=== PATIENT | female | born 1980 | race Caucasian/White ===

== ENCOUNTER 2018-11-13 11:28 | Inpatient (IN) | payer BC, OTHER, SELFPAY ==
[2018-11-13] MEDS ORDERED: ONDANSETRON 4 MG/2 ML VIAL ONE (12:17)
[2018-11-13] MEDS ORDERED: VANCOMYCIN 1 GM/250 ML BAG ONE (12:17)
[2018-11-13] MEDS ORDERED: Levofloxacin 750mg IV 750 MG/150 ML BAG IV ONE (12:17)
[2018-11-13] MEDS ORDERED: NA CHLORIDE 0.9% 2,000 ML ONE (12:17)
[2018-11-13] MEDS ORDERED: MEPERIDINE HCL 25 MG/0.5 ML ONE (12:17)
[2018-11-13 13:00] LABS: Absolute Lymphocytes (CBC) 1.3 K/uL (0.7-4.9); Absolute Monocytes 0.8 K/uL (0.1-1.3); Absolute Neutrophil 19.3 K/uL (1.8-8.0); Basophils % 0.2 % (0-1.3); Hematocrit 28.1 % (36.0-45.0); Lymphocytes % 5.9 % (15.3-44.8); MPV 8.7 fL (7.6-11.3); Monocytes % 3.9 % (3.3-12.3); RBC Red Blood Cell Count 4.65 M/uL (3.86-4.86)
[2018-11-13 13:19] LABS: Albumin 2.9 g/dL (3.4-5.0); Bilirubin Direct 0.4 mg/dL (0-0.2); Bilirubin Total 1.7 mg/dL (0.2-1.0); Potassium 3.2 mmol/L (3.5-5.1); Protein, Total 7.4 g/dL (6.4-8.2)
[2018-11-13] MEDS ORDERED: ACETAMINOPHEN 500 MG TAB ONE (13:28)
--- NOTE | 2018-11-13 13:39 | ER ---
Nurse's Notes [facility] Name: Blossom Diamond Age: 38 yrs Sex: Female : 1980 Arrival Date: 11/13/2018 Time: 11:31 Bed 20 Private MD: Luther Borges Diagnosis: Cellulitis and acute lymphangitis;Sepsis Presentation: 11/13 11:44 Presenting complaint: Patient states: 2 days of redness, swelling to left leg, from iw tapia down, hx of cellulitis 6 months ago in same leg. Transition of care: patient was not received from another setting of care. Onset of symptoms was November 11, 2018. Risk Assessment: Do you want to hurt yourself or someone else? Patient reports no desire to harm self or others. Initial Sepsis Screen: Does the patient meet any 2 criteria? No. Patient's initial sepsis screen is negative. Does the patient have a suspected source of infection? No. Patient's initial sepsis screen is negative. Care prior to arrival: None. 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 - Social history:: Smoking status: Patient/guardian denies using tobacco. - Ebola Screening: : Patient negative for fever greater than or equal to 101.5 degrees Fahrenheit, and additional compatible Ebola Virus Disease symptoms Patient denies exposure to infectious person Patient denies travel to an Ebola-affected area in the 21 days before illness onset No symptoms or risks identified at this time. Screenin:45 Abuse screen: Denies threats or abuse. Nutritional screening: No deficits noted. em Tuberculosis screening: No symptoms or risk factors identified. Fall Risk None identified. Assessment: 12:45 General: Appears in no apparent distress. uncomfortable, Behavior is calm, cooperative. em Pain: Complains of pain in left leg Pain currently is 9 out of 10 on a pain scale. Pain began 2-3 days ago. Neuro: Level of Consciousness is awake, alert, obeys commands, Oriented to person, place, time, situation. Cardiovascular: Rhythm is sinus tachycardia. Respiratory: Reports shortness of breath Airway is patent Respiratory effort is even, Respiratory pattern is regular, symmetrical, Breath sounds are clear bilaterally. GI: Abdomen is obese, Reports nausea. : No signs and/or symptoms were reported regarding the genitourinary system. EENT: No signs and/or symptoms were reported regarding the EENT system. Derm: Skin is intact, Skin is pale, Skin temperature is hot. Musculoskeletal: Range of motion: intact in all extremities. 13:10 Reassessment: Patient appears in no apparent distress at this time. I agree with above iw assessment by Guilherme Iraheta LVN. 13:45 Reassessment: Patient appears in no apparent distress at this time. Patient and/or em family updated on plan of care and expected duration. Pain level reassessed. Patient is alert, oriented x 3, equal unlabored respirations, skin warm/dry/pink. reports nausea after meds, provider notified, new medication orders received. 14:45 Reassessment: Patient appears in no apparent distress at this time. Patient and/or em family updated on plan of care and expected duration. Pain level reassessed. Patient is alert, oriented x 3, equal unlabored respirations, skin warm/dry/pink. pending room assignment Patient states feeling better. Patient states symptoms have improved. 15:15 Reassessment: Patient appears in no apparent distress at this time. Patient and/or em family updated on plan of care and expected duration. Pain level reassessed. Patient is alert, oriented x 3, equal unlabored respirations, skin warm/dry/pink. placed on 2 L via NC, SPO2 96 % RA, reports feeling tired and not well. 15:30 Reassessment: Patient appears in no apparent distress at this time. reports O2 has em helped. 16:31 Reassessment: Patient appears in no apparent distress at this time. Patient and/or em family updated on plan of care and expected duration. Pain level reassessed. Patient is alert, oriented x 3, equal unlabored respirations, skin warm/dry/pink. pt ambulated to restroom with assistance from daughter. Vital Signs: 11:46 BP 108 / 79; Pulse 134; Resp 18 S; Temp 99.7(O); Pulse Ox 96% on R/A; Weight 101.6 kg; iw Height 5 ft. 2 in. (157.48 cm); Pain 9/10; 12:45 BP 125 / 72; Pulse 125; Resp 20; Pulse Ox 97% on R/A; Pain 8/10; em 13:15 BP 135 / 55; Pulse 120; Resp 18; Temp 102.7(O); Pulse Ox 96% on R/A; em 14:00 BP 116 / 64; Pulse 116; Resp 26; Pulse Ox 98% on R/A; em 15:17 BP 118 / 64; Pulse 108; Resp 24; Temp 100.7(O); Pulse Ox 100% on 2 lpm NC; Pain 6/10; em 16:04 BP 107 / 60; Pulse 105; Resp 24; Temp 99.1(O); Pulse Ox 100% on 2 lpm NC; Pain 7/10; em 11:46 Body Mass Index 40.97 (101.60 kg, 157.48 cm) iw ED Course: 11:31 Patient arrived in ED. sb2 11:32 Luther Borges MD is Private Physician. sb2 11:45 Triage completed. iw 11:47 Arm band placed on. iw 11:49 Nico Tolbert PA is PHCP. jr8 11:49 Reji Ballard MD is Attending Physician. jr8 11:59 Guilherme Iraheta LVN is Primary Nurse. em 12:45 Patient has correct armband on for positive identification. Allergy band placed. Placed em in gown. Bed in low position. Call light in reach. Side rails up X2. Adult w/ patient. compliance monitor on. Pulse ox on. NIBP on. 12:45 Inserted saline lock: 22 gauge in right hand, using aseptic technique. Blood collected. em 12:45 Initial lab(s) drawn, by me, sent to lab. First set of blood cultures drawn by me, T\T\S em collected, blood band applied to patient. 13:10 Second set of blood cultures drawn by me. em 13:38 Rebel Smiley MD is Hospitalizing Provider. jr8 17:11 No provider procedures requiring assistance completed. Patient admitted, IV remains in em place. Administered Medications: 12:43 Drug: NS 0.9% (30 ml/kg) 30 ml/kg Route: IV; Rate: bolus; Site: right hand; em 15:38 Follow up: IV Status: Completed infusion; IV Intake: 3000ml tl3 12:45 Drug: Demerol 25 mg Route: IVP; Site: right hand; iw 13:49 Follow up: Response: No adverse reaction; Pain is decreased em 12:45 Drug: Zofran 4 mg Route: IVP; Site: right hand; iw 13:49 Follow up: Response: No adverse reaction; Nausea unchanged em 12:51 Drug: LevaQUIN 750 mg Volume: 150 ml; Route: IVPB; Infused Over: 90 mins; Site: right em hand; 14:21 Follow up: Response: No adverse reaction; IV Status: Completed infusion; IV Intake: em 150ml 13:21 Drug: Tylenol 1000 mg Route: PO; em 15:20 Follow up: Response: No adverse reaction; Temperature is decreased em 13:40 Drug: Potassium Chloride 40 mEq Route: PO; em 14:21 Follow up: Response: No adverse reaction em 14:10 Drug: Phenergan 12.5 mg Route: IVP; Site: right hand; hj 15:21 Follow up: Response: No adverse reaction; Nausea is decreased em 14:19 Drug: vancoMYCIN 1 grams Route: IVPB; Infused Over: 2 hrs; Site: right hand; em 16:31 Drug: NS 0.9% 1000 ml Route: IV; Rate: 100 ml/hr; Site: right hand; em 17:06 Follow up: IV Status: Infusion continued upon admission; IV Intake: 50ml em Intake: 14:21 IV: 150ml; Total: 150ml. em 15:38 IV: 3000ml; Total: 3150ml. tl3 17:06 IV: 50ml; Total: 3200ml. em Outcome: 13:39 Decision to Hospitalize by Provider. jrFarhad 17:11 Admitted to Tele accompanied by tech, family with patient, via stretcher, room 426, em with chart, Report called to LAST Breen 17:11 Condition: good 17:11 Instructed on the need for admit, Demonstrated understanding of instructions. 17:12 Patient left the ED. em Signatures: Guilherme Iraheta, DISTRIBUTION SYSTEMS SERVICEPERSON DISTRIBUTION SYSTEMS SERVICEPERSON em Mai Tracy RN RN Nico Tolbert PA PA jr8 Jamshid Demarco RN RN Angi Bacon [facility] Ronny, Lilibeth, RN RN tl3
--- NOTE | 2018-11-13 13:39 | EDPHYS ---
Physician Documentation [facility] Name: Blossom Diamond Age: 38 yrs Sex: Female : 1980 Arrival Date: 11/13/2018 Time: 11:31 Bed 20 Private MD: Luther Borges ED Physician Reji Ballard HPI: 11/13 12:48 This 38 yrs old Female presents to ER via Wheelchair with complaints of jr8 Cellulitis. 12:48 The patient presents with cellulitis of the left leg. Description: The affected area is jr8 moderate sized, erythematous, warm. Onset: The symptoms/episode began/occurred gradually, 2 day(s) ago. Possible cause(s): unknown. Associated signs and symptoms: Pertinent positives: fever. Modifying factors: the symptoms are alleviated by nothing, the symptoms are aggravated by movement, walking, pressure, touching. Severity of symptoms: At their worst the symptoms were moderate, in the emergency department the symptoms are unchanged. The patient has experienced a previous episode. The patient has not recently seen a physician. 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 - Social history:: Smoking status: Patient/guardian denies using tobacco. - Ebola Screening: : Patient negative for fever greater than or equal to 101.5 degrees Fahrenheit, and additional compatible Ebola Virus Disease symptoms Patient denies exposure to infectious person Patient denies travel to an Ebola-affected area in the 21 days before illness onset No symptoms or risks identified at this time. ROS: 12:48 Eyes: Negative for injury, pain, redness, and discharge, ENT: Negative for injury, jr8 pain, and discharge, Neck: Negative for injury, pain, and swelling, Cardiovascular: Negative for chest pain, palpitations, and edema, Respiratory: Negative for shortness of breath, cough, wheezing, and pleuritic chest pain, Abdomen/GI: Negative for abdominal pain, nausea, vomiting, diarrhea, and constipation, Back: Negative for injury and pain, MS/Extremity: Negative for injury and deformity, Neuro: Negative for headache, weakness, numbness, tingling, and seizure. 12:48 Constitutional: Positive for fever. 12:48 Skin: Positive for cellulitis. Exam: 12:48 Eyes: Pupils equal round and reactive to light, extra-ocular motions intact. Lids and jr8 lashes normal. Conjunctiva and sclera are non-icteric and not injected. Cornea within normal limits. Periorbital areas with no swelling, redness, or edema. ENT: Nares patent. No nasal discharge, no septal abnormalities noted. Tympanic membranes are normal and external auditory canals are clear. Oropharynx with no redness, swelling, or masses, exudates, or evidence of obstruction, uvula midline. Mucous membranes moist. Neck: Trachea midline, no thyromegaly or masses palpated, and no cervical lymphadenopathy. Supple, full range of motion without nuchal rigidity, or vertebral point tenderness. No Meningismus. Respiratory: Lungs have equal breath sounds bilaterally, clear to auscultation and percussion. No rales, rhonchi or wheezes noted. No increased work of breathing, no retractions or nasal flaring. Abdomen/GI: Soft, non-tender, with normal bowel sounds. No distension or tympany. No guarding or rebound. No evidence of tenderness throughout. Back: No spinal tenderness. No costovertebral tenderness. Full range of motion. Neuro: Awake and alert, GCS 15, oriented to person, place, time, and situation. Cranial nerves II-XII grossly intact. Motor strength 5/5 in all extremities. Sensory grossly intact. Cerebellar exam normal. Normal gait. 12:48 MS/ Extremity: Pulses equal, no cyanosis. Neurovascular intact. Full, normal range of motion. 12:48 Cardiovascular: Rate: tachycardic, Rhythm: regular, Pulses: Pulses are 2+ in right radial artery and left radial artery. Heart sounds: normal, normal S1and S2, no S3 or S4, no murmur, no rub, no gallop, Edema: is not appreciated. 12:48 Skin: cellulitis, that is moderate, well demarcated, Patient has moderate circumferential cellulitis to dorsum of left foot extending to left knee. Swelling/edema noted to leg. Painful to touch. Reactive lymphadenopathy to left groin present and tender . Vital Signs: 11:46 BP 108 / 79; Pulse 134; Resp 18 S; Temp 99.7(O); Pulse Ox 96% on R/A; Weight 101.6 kg; iw Height 5 ft. 2 in. (157.48 cm); Pain 9/10; 12:45 BP 125 / 72; Pulse 125; Resp 20; Pulse Ox 97% on R/A; Pain 8/10; em 13:15 BP 135 / 55; Pulse 120; Resp 18; Temp 102.7(O); Pulse Ox 96% on R/A; em 14:00 BP 116 / 64; Pulse 116; Resp 26; Pulse Ox 98% on R/A; em 15:17 BP 118 / 64; Pulse 108; Resp 24; Temp 100.7(O); Pulse Ox 100% on 2 lpm NC; Pain 6/10; em 16:04 BP 107 / 60; Pulse 105; Resp 24; Temp 99.1(O); Pulse Ox 100% on 2 lpm NC; Pain 7/10; em 11:46 Body Mass Index 40.97 (101.60 kg, 157.48 cm) iw MDM: 11:49 Patient medically screened. jr8 13:37 Data reviewed: vital signs, nurses notes, lab test result(s), EKG, radiologic studies, jr8 ultrasound, and as a result, I will admit patient. Data interpreted: Pulse oximetry: on room air is 96 %. Interpretation: normal. Counseling: I had a detailed discussion with the patient and/or guardian regarding: the historical points, exam findings, and any diagnostic results supporting the discharge/admit diagnosis, lab results, radiology results, the need for further work-up and treatment in the hospital. Physician consultation: Rebel Smiley MD was called at 13:38, was contacted at 13:38, regarding admission, to the telemetry unit. consult, patient's condition, and will see patient in ED. 11/13 12:01 Order name: Sed Rate; Complete Time: 17: jr8 11/13 12:01 Order name: Basic Metabolic Panel; Complete Time: 13:21 jr8 11/13 12:01 Order name: Blood Culture Adult (2) jr8 11/13 12:01 Order name: CBC with Diff; Complete Time: 17:01 jr8 11/13 12:01 Order name: CPK; Complete Time: 13:21 jr8 11/13 12:01 Order name: Lactate; Complete Time: 13:22 jr8 11/13 12:01 Order name: LFT's; Complete Time: 13:21 jr8 11/13 12:01 Order name: Procalcitonin; Complete Time: 13:33 jr8 11/13 12:01 Order name: Protime (+inr); Complete Time: 14:34 jr8 11/13 12:05 Order name: TS; Complete Time: 13:50 jr8 11/13 13:05 Order name: Manual Differential; Complete Time: 17:01 EDMS 11/13 13:28 Order name: ABO/RH no charge; Complete Time: 13:33 EDMS 11/13 15:49 Order name: Urine Dipstick--Ancillary (enter results) ag 11/13 12:01 Order name: Accucheck; Complete Time: 12:51 jr8 11/13 12:01 Order name: Cardiac monitoring; Complete Time: 12:51 8 11/13 12:01 Order name: EKG - Nurse/Tech; Complete Time: 15:55 8 11/13 15:15 Order name: Extremity Venous Uni Ltd EDMS 11/13 15:49 Order name: Urine --Ancillary (enter results) ag 11/13 15:56 Order name: Urine --Ancillary; Complete Time: 15:58 EDMS 11/13 15:56 Order name: Urine Dipstick-Ancillary; Complete Time: 15:58 EDMS 11/13 12:01 Order name: IV Saline Lock - Large Bore; Complete Time: 12:51 8 11/13 12:01 Order name: Labs collected and sent; Complete Time: 12:52 8 11/13 12:01 Order name: O2 Per Protocol; Complete Time: 12:52 8 11/13 12:01 Order name: O2 Sat Monitoring; Complete Time: 12:52 8 11/13 12:01 Order name: Urine Dipstick-Ancillary (obtain specimen); Complete Time: 15:38 8 11/13 13:09 Order name: Labs - recollect needed; Complete Time: 13:49 ag Administered Medications: 12:43 Drug: NS 0.9% (30 ml/kg) 30 ml/kg Route: IV; Rate: bolus; Site: right hand; em 15:38 Follow up: IV Status: Completed infusion; IV Intake: 3000ml tl3 12:45 Drug: Demerol 25 mg Route: IVP; Site: right hand; iw 13:49 Follow up: Response: No adverse reaction; Pain is decreased em 12:45 Drug: Zofran 4 mg Route: IVP; Site: right hand; iw 13:49 Follow up: Response: No adverse reaction; Nausea unchanged em 12:51 Drug: LevaQUIN 750 mg Volume: 150 ml; Route: IVPB; Infused Over: 90 mins; Site: right em hand; 14:21 Follow up: Response: No adverse reaction; IV Status: Completed infusion; IV Intake: em 150ml 13:21 Drug: Tylenol 1000 mg Route: PO; em 15:20 Follow up: Response: No adverse reaction; Temperature is decreased em 13:40 Drug: Potassium Chloride 40 mEq Route: PO; em 14:21 Follow up: Response: No adverse reaction em 14:10 Drug: Phenergan 12.5 mg Route: IVP; Site: right hand; hj 15:21 Follow up: Response: No adverse reaction; Nausea is decreased em 14:19 Drug: vancoMYCIN 1 grams Route: IVPB; Infused Over: 2 hrs; Site: right hand; em 16:31 Drug: NS 0.9% 1000 ml Route: IV; Rate: 100 ml/hr; Site: right hand; em 17:06 Follow up: IV Status: Infusion continued upon admission; IV Intake: 50ml em Disposition: 11/14 07:16 Co-signature as Attending Physician, Reji Ballard MD I agree with the assessment and mervin plan of care. Disposition: 11/13/18 13:39 Hospitalization ordered by Rebel Smiley for Inpatient Admission. Preliminary diagnosis are Cellulitis and acute lymphangitis, Sepsis. - Bed requested for Telemetry/MedSurg (Inpatient). - Status is Inpatient Admission. em - Condition is Fair. - Problem is new. - Symptoms have improved. UTI on Admission? No Signatures: Dispatcher [employer] Ivett Vogel RN RN dw Anderson, Corey, MD MD cha Munoz, Edgar, GLUE PLANT OPERATOR GLUE PLANT OPERATOR em Mai Tracy RN RN iw Roszak, Josh, PA PA jr8 Tara Cuellar Henry, RN RN hj Lowrey, Tammy RN tl3 Corrections: (The following items were deleted from the chart) 11/13 12:08 12:04 Blood Culture ordered. [facility] 12:09 12:02 BLOOD CULTURE*+[id number].LAB.BRZ ordered. [facility] 16:03 13:39 Hospitalization Ordered by Rebel Smiley MD for Inpatient Admission. Preliminary dw diagnosis is Cellulitis and acute lymphangitis; Sepsis. Bed requested for Telemetry/MedSurg (Inpatient). Status is Inpatient Admission. Condition is Fair. Problem is new. Symptoms have improved. UTI on Admission? No. jr8 17:12 16:03 11/13/2018 13:39 Hospitalization Ordered by Rebel Smiley MD for Inpatient em Admission. Preliminary diagnosis is Cellulitis and acute lymphangitis; Sepsis. Bed requested for Telemetry/MedSurg (Inpatient). Status is Inpatient Admission. Condition is Fair. Problem is new. Symptoms have improved. UTI on Admission? No. dw
[2018-11-13] MEDS ORDERED: POTASSIUM CL SA 10 MEQ TAB PO ONE (13:47)
[2018-11-13] MEDS ORDERED: NA CHLORIDE 0.9% 1,000 ML ONE ×2 (13:47→16:26)
[2018-11-13 14:12] LABS: Protime INR 2.1
[2018-11-13] MEDS ORDERED: PROMETHAZINE 25 MG/ML VIAL ONE (14:14)
[2018-11-13 15:56] LABS: Urine Blood 2+ (NEG); Urine Glucose NEGATIVE (NEG); Urine Protein 2+ (NEG); Urine pH 5.5 (5.0-7.0)
[2018-11-13 16:57] LABS: Platelet Estimate ADEQ
[2018-11-13 16:58] LABS: Anisocytosis 1+; Blood Morphology Comment NOTED (NOT SEEN); Hypochromasia 2+; Ovalocytes 1+; Polychromasia 1+
[2018-11-13 18:02] LABS: Absolute Lymphocytes (CBC) 1.1 K/uL (0.7-4.9); Absolute Monocytes 0.7 K/uL (0.1-1.3); Absolute Neutrophil 13.6 K/uL (1.8-8.0); Basophils % 0.2 % (0-1.3); Eosinophils % 0.3 % (0-4.4); Hematocrit 25.6 % (36.0-45.0); Monocytes % 4.6 % (3.3-12.3); RBC Red Blood Cell Count 4.24 M/uL (3.86-4.86)
[2018-11-13] MEDS: ENOXAPARIN 40 MG/0.4 ML SQ SCH (18:20)
[2018-11-13] MEDS: NA CHLORIDE 0.9% 1,000 ML IV SCH (18:20)
[2018-11-13 18:21] LABS: Albumin 2.5 g/dL (3.4-5.0); Bilirubin Total 1.4 mg/dL (0.2-1.0); Potassium 3.5 mmol/L (3.5-5.1); Protein, Total 6.4 g/dL (6.4-8.2)
--- NOTE | 2018-11-13 18:45 | P.HP ---
Certification for Inpatient Patient admitted to: Inpatient With expected LOS: >2 Midnights Practitioner: I am a practitioner with admitting privileges, knowledge of patient current condition, hospital course, and medical plan of care. Services: Services provided to patient in accordance with Admission requirements found in Title 42 Section 412.3 of the Code of Federal Regulations Patient History Date of Service: 11/13/18 Reason for admission: Left lower extremity swelling. History of Present Illness: This is a 38 yr old female with hx of anemia admitted for cellulitis of Left lower extremity. Left lower extremity swelling, erythema, pain, tenderness, fevers, chills, for the past 2-3 days, progressively worsening. In the ED, patient with elevated WBC count, fever, tachycardia, elevated procal with a normal lactic acid. She received IVF, IV levaquin and Vancomycin. At the time of my exam, pt AAOx3, moderate distress 2/2 pain. Allergies codeine Allergy (Verified 11/13/18 16:16) Hives/Rash Home Medications: NK [No Home Meds] 11/13/18 - Past Medical/Surgical History Diabetic: No -: Cellulitis - Social History Smoking Status: Never smoker Alcohol use: No CD- Drugs: No Caffeine use: Yes Place of Residence: Home Review of Systems 10-point ROS is otherwise unremarkable Physical Examination - Vital Signs Temperature: 99.1 F Blood Pressure: 107/60 Pulse: 105 Respirations: 24 Pulse Ox (%): 97 - Physical Exam General: Alert, In no apparent distress, Oriented x3 HEENT: Atraumatic, PERRLA, Mucous membr. moist/pink, EOMI, Sclerae nonicteric Neck: Supple, 2+ carotid pulse no bruit, No LAD, Without JVD or thyroid abnormality Respiratory: Clear to auscultation bilaterally, Normal air movement Cardiovascular: Normal S1 S2, Irregular heart rate/rhythm (Tachycardic, normal sinus rhythm) Gastrointestinal: Normal bowel sounds, No tenderness Musculoskeletal: No tenderness Integumentary: Tenderness/swelling, Erythema, Warmth (LLE) Neurological: Normal gait, Normal speech, Normal strength at 5/5 x4 extr, Normal tone, Normal affect Lymphatics: No axilla or inguinal lymphadenopathy - Studies Laboratory Data (last 24 hrs) 11/13/18 13:48: PT 25.0 H, INR 2.10 11/13/18 12:40: Sodium 132 L, Potassium 3.2 L, BUN 9, Creatinine 0.99, Glucose 120 H, Total Bilirubin 1.7 H, AST 22, ALT 25, Alkaline Phosphatase 63 11/13/18 12:40: WBC 21.4 H*, Hgb 8.7 L, Hct 28.1 L, Plt Count 366 Assessment and Plan - Problems (Diagnosis) (1) Left leg cellulitis Current Visit: Yes Status: Acute (2) Anemia Current Visit: Yes Status: Acute Qualifiers: Anemia type: iron deficiency Iron deficiency anemia type: unspecified iron deficiency Qualified Code(s): D50.9 - Iron deficiency anemia, unspecified (3) Sepsis Current Visit: Yes Status: Acute Qualifiers: Sepsis type: sepsis due to unspecified organism Qualified Code(s): A41.9 - Sepsis, unspecified organism (4) Family history of systemic lupus erythematosus Current Visit: Yes Status: Chronic (5) Morbid obesity with BMI of 40.0-44.9, adult Current Visit: Yes Status: Chronic (6) Tachycardia Current Visit: Yes Status: Acute - Plan This is a 38 yr old female with: Sepsis (Acute) A41.9 Sepsis with tachycardia, elevated WBC, fever. Source is likely the cellulitis. We will continue IVF, IV antibiotics. Continue to monitor Left leg cellulitis (Acute) L03.116 Continue IV antibiotics Continue to monitor demarcation of cellulitis. Seems that this is the second time patient has had cellulitis in same region. A1c pending Tachycardia, sinus rhythm Likely secondary to sepsis vs anemia? Continue IVF, will monitor. Tele monitoring Anemia (Acute) D64.9 Chronic. patient takes OTC iron pills during menstrual cycles. H&H stable, no evidence of bleeding. Will continue to monitor Family history of systemic lupus erythematosus (Acute) Z82.69 Morbid obesity, BMI 41.0 DVT prophylaxis: Lovenox GI prophylaxis: None Diet; heart healthy Dispo: Admit to floor with tele. Continue IVF, IV antibiotics. Pending symptomatic improvement. - Advance Directives Does patient have a Living Will: No Does patient have a Durable POA for Healthcare: No Time Spent Managing Pts Care (In Minutes): 55
[2018-11-13] MEDS ORDERED: TRAMADOL HCL 50 MG TAB PO PRN (18:58)
[2018-11-13] MEDS ORDERED: ONDANSETRON 4 MG/2 ML VIAL IV PRN (18:58)
[2018-11-13] MEDS: MEPERIDINE HCL 25 MG/0.5 ML IV PRN (19:51)
[2018-11-13] MEDS ORDERED: VANCOMYCIN/NS 1 gm 1 GM/250 ML BAG IVPB ONE (20:00)
[2018-11-13] MEDS ORDERED: POTASSIUM 25 MEQ EFFERV TAB PO ONE (21:00)
[2018-11-13] MEDS ORDERED: VANCOMYCIN 1 GM/VIAL ONE (21:27)
[2018-11-13] MEDS ORDERED: NA CHLORIDE 0.9% 250 ML ONE (21:28)
[2018-11-13] MEDS: ACETAMINOPHEN 500 MG TAB PO PRN (23:57)
[2018-11-14] MEDS: MEPERIDINE HCL 25 MG/0.5 ML IV PRN ×4 (00:11→16:13)
[2018-11-14] MEDS ORDERED: VANCOMYCIN 1.5 GM in NA CHLORIDE 0.9% 500 ML IVPB SCH (03:00)
[2018-11-14] MEDS ORDERED: VANCOMYCIN 2 GM in NA CHLORIDE 0.9% 500 ML IVPB SCH (03:00)
[2018-11-14 04:37] LABS: Magnesium 1.8 mg/dL (1.8-2.4); Potassium 3.4 mmol/L (3.5-5.1)
[2018-11-14] MEDS ORDERED: MAGNESIUM SULFATE 1 gm IVPB 1 GM/100 ML BAG IV ONE (04:45)
[2018-11-14] MEDS: NA CHLORIDE 0.9% 1,000 ML IV SCH ×2 (05:00→15:00)
[2018-11-14] MEDS ORDERED: POTASSIUM 25 MEQ EFFERV TAB PO ONE (07:30)
[2018-11-14] MEDS: CEFTRIAXONE/SWI 1gm 1 GM/10 ML SYR IV SCH (08:10)
--- NOTE | 2018-11-14 08:16 | RAD REPORT ---
EXAM DESCRIPTION: USExtremdominique Venous Uni Ltd11/13/2018 10:11 pm CLINICAL HISTORY: left leg pain and swelling. COMPARISON: None. FINDINGS: Left common femoral, superficial femoral, popliteal and posterior tibial veins are compre ssible and demonstrate augmentation. Doppler demonstrates good flow. 2 centimeter left inguinal lymph node IMPRESSION: No evidence of deep venous thrombosis involving the left lower extremity.
[2018-11-14] MEDS ORDERED: CEFTRIAXONE 1 GM/NS 50 ML 1 GM/50 ML BAG IV SCH (09:00)
[2018-11-14] MEDS: VANCOMYCIN 2 GM in NA CHLORIDE 0.9% 500 ML IVPB SCH ×2 (09:06→21:00)
--- NOTE | 2018-11-14 09:09 | EKG ---
Test Date: 2018-11-13 Test Time: 13:19:02 Disability Manager: [place] MEASUREMENT RESULTS: Intervals: Rate: 121 WV: 142 QRSD: 72 QT: 310 QTc: 440 [place]: P: 41 WV: 142 QRS: 47 T: 48 INTERPRETIVE STATEMENTS: Sinus tachycardia Cannot rule out Anterior infarct, age undetermined Abnormal ECG Compared to ECG 11/17/2013 09:21:01 Myocardial infarct finding now present Sinus rhythm no longer present Electronically Signed On 11-14-18 09:09:16 WELDING MACHINE OPERATOR THERMIT by Kaveh Garcia
[2018-11-14] MEDS: ENOXAPARIN 40 MG/0.4 ML SQ SCH (17:09)
[2018-11-14] MEDS: ACETAMINOPHEN 500 MG TAB PO PRN (17:09)
--- NOTE | 2018-11-14 18:45 | P.PN ---
Subjective Date of Service: 11/14/18 Chief Complaint: Left lower extremity swelling. Subjective: No C/O voiced, Improving Patient seen and examined at bedside. Mother at bedside. chart reviewed and case discussed with nursing staff. Review of Systems 10-point ROS is otherwise unremarkable Physical Examination - Vital Signs Temperature: 100.9 F Blood Pressure: 119/63 Pulse: 115 Respirations: 18 Pulse Ox (%): 96 - Physical Exam General: Alert, In no apparent distress, Oriented x3 HEENT: Atraumatic, PERRLA, EOMI Neck: Supple, JVD not distended Respiratory: Clear to auscultation bilaterally, Normal air movement Cardiovascular: Regular rate/rhythm, Normal S1 S2 Gastrointestinal: Normal bowel sounds, No tenderness Musculoskeletal: No tenderness Integumentary: No rashes Neurological: Normal speech, Normal tone, Normal affect Lymphatics: No axilla or inguinal lymphadenopathy - Studies Microbiology Data (last 24 hrs): 11/13/18 12:40 Blood - Blood Anaerobic Blood Culture - Final Assessment And Plan - Current Problems (Diagnosis) (1) Left leg cellulitis Onset Date: 11/14/18 Current Visit: Yes Status: Acute (2) Anemia Onset Date: 11/14/18 Current Visit: Yes Status: Acute Qualifiers: Anemia type: iron deficiency Iron deficiency anemia type: unspecified iron deficiency Qualified Code(s): D50.9 - Iron deficiency anemia, unspecified (3) Sepsis Onset Date: 11/14/18 Current Visit: Yes Status: Acute Qualifiers: Sepsis type: sepsis due to unspecified organism Qualified Code(s): A41.9 - Sepsis, unspecified organism (4) Family history of systemic lupus erythematosus Current Visit: Yes Status: Chronic (5) Morbid obesity with BMI of 40.0-44.9, adult Onset Date: 11/14/18 Current Visit: Yes Status: Chronic (6) Tachycardia Onset Date: 11/14/18 Current Visit: Yes Status: Acute - Plan This is a 38 yr old female with: Sepsis (Acute) A41.9 Improving Sepsis with tachycardia, elevated WBC, fever. Source is likely the cellulitis. We will continue IVF, IV antibiotics. Continue to monitor Left leg cellulitis (Acute) L03.116 Continue IV antibiotics Continue to monitor demarcation of cellulitis. Seems that this is the second time patient has had cellulitis in same region. A1c in normal range Tachycardia, sinus rhythm Likely secondary to sepsis vs anemia? Continue IVF, will monitor. Tele monitoring Anemia (Acute) D64.9 Chronic. patient takes OTC iron pills during menstrual cycles. H&H remains stable, no evidence of bleeding. Will continue to monitor Family history of systemic lupus erythematosus (Acute) Z82.69 Morbid obesity, BMI 41.0 DVT prophylaxis: Lovenox GI prophylaxis: None Diet; heart healthy Dispo: Admit to floor with tele. Continue IVF, IV antibiotics. Pending symptomatic improvement.
[2018-11-14] MEDS ORDERED: ZOLPIDEM TARTRATE 5 MG TABLET PO ONE (21:00)
[2018-11-15] MEDS: NA CHLORIDE 0.9% 1,000 ML IV SCH (01:00)
[2018-11-15] MEDS: ACETAMINOPHEN 500 MG TAB PO PRN ×2 (06:01→10:46)
[2018-11-15 07:50] LABS: BUN Blood Urea Nitrogen 5 mg/dL (7-18); Bicarbonate 21 mmol/L (21-32); Glucose Level 125 mg/dL (74-106); Magnesium 2.1 mg/dL (1.8-2.4); Phosphorus 1.4 mg/dL (2.5-4.9); Potassium 3.5 mmol/L (3.5-5.1); Sodium Level 141 mmol/L (136-145)
[2018-11-15] MEDS ORDERED: POTASSIUM CL SA 10 MEQ TAB PO ONE (08:08)
[2018-11-15] MEDS: VANCOMYCIN 2 GM in NA CHLORIDE 0.9% 500 ML IVPB SCH ×2 (08:39→20:00)
[2018-11-15] MEDS: CEFTRIAXONE/SWI 1gm 1 GM/10 ML SYR IV SCH (08:40)
[2018-11-15] MEDS: POTASS/SODIUM PHOSPHATE 1 PKT POWD.PACK PO SCH ×3 (08:41→10:48)
[2018-11-15 11:34] LABS: Absolute Lymphocytes (CBC) 1.4 K/uL (0.7-4.9); Absolute Monocytes 0.8 K/uL (0.1-1.3); Absolute Neutrophil 8.9 K/uL (1.8-8.0); Basophils % 0.3 % (0-1.3); Eosinophils % 0.4 % (0-4.4); Hematocrit 24.1 % (36.0-45.0); Lymphocytes % 12.8 % (15.3-44.8); MPV 8.7 fL (7.6-11.3); Monocytes % 7.1 % (3.3-12.3); RBC Red Blood Cell Count 3.93 M/uL (3.86-4.86)
[2018-11-15 12:56] LABS: Platelet Estimate ADEQ; Urine White Blood Cell Casts OK
[2018-11-15 12:57] LABS: Anisocytosis 1+; Blood Morphology Comment NOTED (NOT SEEN); Hypochromasia 2+; Ovalocytes 1+
[2018-11-15] MEDS ORDERED: FUROSEMIDE 40 MG/4 ML VIAL IV ONE (14:06)
[2018-11-15] MEDS ORDERED: ALPRAZOLAM 0.25 MG TABLET PO ONE (14:17)
--- NOTE | 2018-11-15 16:33 | RAD REPORT ---
EXAM DESCRIPTION: Eli Conklin And Lat (2 Views)11/15/2018 1:36 pm CLINICAL HISTORY: Shortness of breath COMPARISON: 2014 FINDINGS: Mild to moderate bilateral patchy lung opacities are present. Heart is mildly enlarged IMPRESSION: Small to moderate patchy bilateral lung opacities probably representing pneumonia.
--- NOTE | 2018-11-15 16:35 | RAD REPORT ---
EXAM DESCRIPTION: NM - Vent Perfusion VQ Scan - 11/15/2018 4:26 pm CLINICAL HISTORY: Shortness of breath COMPARISON: Chest x-ray November 15, 2018 TECHNIQUE: 11.1 Mci Xe133 was administered by inhalation. First breath, equilibrium, and washout images of the lungs obtained 7.7 millicuries Technetium-99 MAA was administered intravenously. Anterior, posterior, lateral and ob lique views of the lungs were taken. FINDINGS: Diminished radiotracer activity involves the left lung base on ventilation and perfusion i mages which is matched. The right lung demonstrates homogeneous radiotracer activity on ventilation and perfusion sequences. No mismatched segmental or lobar perfusion defects are seen. IMPRESSION: Low probability for a pulmonary embolus
[2018-11-15] MEDS: ENOXAPARIN 40 MG/0.4 ML SQ SCH (17:42)
--- NOTE | 2018-11-15 21:07 | PN ---
Date of Progress Note: 11/15/2018 Subjective: The patient is seen and examined. Chart reviewed and case discussed with RN. The patient is having significant difficulty with speaking in full sentences without getting short of breath. The patient is tachycardic, complaining of edema in her lower extremity and her upper extremity where the IV is. Medications: List reviewed. Physical Examination: Vital Signs: Temperature 100.7, heart rate 111, blood pressure 117/67, respirations 16, and O2 of 92% on 2 L via nasal cannula. General: Awake, alert, and oriented x3. Morbidly obese female, ill appearing. CV: S1 and S2. Sinus tachycardia. No murmurs. Respiratory: Diminished breath sounds. No wheezing or stridor. Gastrointestinal: Abdomen is nontender and nondistended. Positive bowel sounds. No guarding or rigidity. Extremities: No clubbing or cyanosis. The patient does have edema on the left lower extremity and right upper extremity. Neurologic: Nonfocal. Cranial nerves 2 through 12 intact grossly. No focal neurological deficit. Speech is normal. Laboratory Data: Sodium 141, potassium 3.5, chloride 111, CO2 of 21, BUN 5, creatinine 0.69, glucose 125, calcium 7.6, phosphorus 1.4 and magnesium 2.1. WBC 11.2, H and H of 7.2 and 24.1, neutrophils 79%. D-dimer is 1034. Blood cultures, no growth to date. Chest x-ray shows small to moderate patchy bilateral lung opacities, probably represent pneumonia. V/Q scan is pending. Assessment And Plan: A 38-year-old female with, 1. Sepsis secondary to left leg cellulitis. 2. Left leg cellulitis, improving. White count has improved. Redness has improved as well. We will continue IV antibiotics. Follow up on blood cultures , were negative to date. 3. Iron-deficiency anemia. This is chronic for the patient. The patient is refusing blood transfusion at this time. We will continue to monitor H and H. 4. Family history of systemic lupus erythematosus. 5. Morbid obesity, BMI 41. 6. Pneumonia. We will continue with IV antibiotics. 7. Edema. We will follow up with lung V/Q scan, obtain pulmonology consult. Discontinue IV fluids. SA/MODL Voice ID: [id number] Report ID: [id number] MTDD
[2018-11-15] MEDS: ALPRAZOLAM 0.25 MG TABLET PO PRN (21:49)
[2018-11-16 06:32] LABS: BUN Blood Urea Nitrogen 7 mg/dL (7-18); Bicarbonate 27 mmol/L (21-32); Glucose Level 94 mg/dL (74-106); Phosphorus 2.9 mg/dL (2.5-4.9); Potassium 3.3 mmol/L (3.5-5.1); Sodium Level 140 mmol/L (136-145)
[2018-11-16] MEDS ORDERED: POTASSIUM CL SA 10 MEQ TAB PO ONE ×2 (08:07→16:30)
--- NOTE | 2018-11-16 08:26 | RAD REPORT ---
EXAM DESCRIPTION: RAD - Chest Single View - 11/16/2018 1:36 am CLINICAL HISTORY: PICC line placement A preliminary report was provided at the time of the study and reviewed prior to final report. COMPARISON: November 15 FINDINGS: Portable chest was obtained following placement of a right upper extremity PICC line. The catheter tip is in the right atrium.
[2018-11-16] MEDS: CEFTRIAXONE/SWI 1gm 1 GM/10 ML SYR IV SCH (09:19)
[2018-11-16] MEDS: VANCOMYCIN 2 GM in NA CHLORIDE 0.9% 500 ML IVPB SCH ×2 (09:20→20:39)
[2018-11-16 09:28] LABS: Hematocrit 22.5 % (36.0-45.0)
[2018-11-16 10:41] LABS: Arterial Blood Carboxyhemoglob 2.1 % (0-1.5); Blood Gas Oxyhemoglobin 89.9 % (94-97)
[2018-11-16] MEDS: ALPRAZOLAM 0.25 MG TABLET PO PRN ×2 (11:25→20:41)
--- NOTE | 2018-11-16 12:07 | P.CNS ---
Date of Consult: 11/16/18 Reason for Consult: Shortness of breath Chief Complaint: Shortness of breath and lower extremity edema History of Present Illness: Patient is 38 years of age admitted with left lower leg cellulitis problems started over the weekend steroid related developing fever swelling of the legs became worse over the past 2 days and then developed more shortness of breath pressure in her chair she has presume severe iron-deficiency anemia secondary to to her menstrual periods. For prior history of cardiopulmonary problems patient had a bout of cellulitis in May and was treated with antibiotics Allergies codeine Allergy (Verified 11/13/18 16:16) Hives/Rash shrimp Allergy (Verified 11/15/18 13:47) Anaphylaxis Home Medications: NK [No Home Meds] 11/13/18 - Past Medical/Surgical History Diabetic: No -: Cellulitis - Social History Alcohol use: No CD- Drugs: No Caffeine use: Yes Place of Residence: Home Review of Systems Respiratory: Shortness of Breath Cardiovascular: Edema (And significant edema of the left leg) Physical Examination Temp Pulse Resp BP Pulse Ox 98.1 F 97 H 20 112/55 L 99 11/16/18 08:00 11/16/18 08:00 11/16/18 08:00 11/16/18 08:00 11/16/18 08:00 General: Alert, In no apparent distress, Oriented x3 HEENT: Atraumatic Neck: Supple Respiratory: Clear to auscultation bilaterally Cardiovascular: Regular rate/rhythm, Edema (Left leg is red and swollen) - Problems (1) Left leg cellulitis Onset Date: 11/14/18 Current Visit: Yes Status: Acute Plan: Patient is 38 years of age admitted with left leg cellulitis currently on vancomycin and Rocephin cultures are all negative (2) Shortness of breath Current Visit: Yes Status: Acute Plan: Patient has developed dyspnea since hospitalization she is a severe microcytic anemia of order serum ferritin she will need iron infusions patient is mildly hypoxic V/Q scan low probability no evidence of DVT patient's white count is declining as patient is up ox sick I recommended trial of CPAP probably underlying atelectasis trial of bronchodilator, poss underlying YONAS.
[2018-11-16] MEDS: ALBUTEROL 2.5 MG/3 ML NEB SOL NEB SCH ×2 (14:07→19:59)
[2018-11-16] MEDS: ENOXAPARIN 40 MG/0.4 ML SQ SCH (17:12)
[2018-11-16] MEDS: SOD FERRIC GLUC COMPLX/SUCROSE 125 MG in NA CHLORIDE 0.9% 100 ML IV SCH (17:12)
--- NOTE | 2018-11-16 20:31 | PN ---
Date of Progress Note: 11/16/2018 Subjective: The patient is seen and examined. Chart reviewed and case discussed with RN and Dr. Donal carter as well as her primary care physician, Dr. Borges. The patient states she is doing significant ly better. Her shortness of breath has improved. She still has some hypoxic episodes with tachycard ia but overall is able to speak without getting short of breath. Swelling has improved as well. No further erythema of the lower extremity. Medications: List reviewed. Objective: Vital Signs: Temperature 98.1, heart rate 97, blood pressure 112/55, respirations 20, O2 of 99% on 3 L via nasal cannula. General: Awake, alert, oriented x3. Morbidly obese female, ill-appearing. CV: S1, S2. Sinus tachycardia. No murmurs. Peripheral pulses present. Respiratory: Diminished breath sounds. No wheezing or crackles. Gastrointestinal: Abdomen is soft, nontender, nondistended. Positive bowel sounds. Extremities: No clubbing, cyanosis. The patient has lower extremity edema, 3+ of the left lower ext remity greater than the right. Neurologic: Nonfocal. Skin: Left lower extremity erythema improving. Laboratory Data: Sodium 140, potassium 3.3, chloride 106, CO2 of 27, BUN 7, creatinine of 0.62, gluc ose 94, calcium 7.9, phosphorus 2.9, ferritin 35. ABG; pH 7.46, pCO2 of 34.3, PO2 of 64, bicarb 24. D-dimer from 11/15/2018 was 1034. H and H 7 and 22.5. Blood cultures no growth to date. Assessment: A 38-year-old female with: 1.Acute respiratory distress with hypoxemia, may be secondary to severe anemia versus atelectasis, d oubt pneumonia. Appreciate Dr. Pappas's input. We will place patient on CPAP and look for signs o f improvement. Wean off oxygen as tolerated. The patient is still very tachypneic and tachycardic. 2.Sepsis secondary to left leg cellulitis, improving. White count trending down. However, the daniel ent is still tachycardic, has remained afebrile for greater than 24 hours. Cultures are negative to date. Continue antibiotics. 3.Left leg cellulitis, improved. Erythema is resolving. We will continue IV antibiotics for now. 4.Iron deficiency anemia. H and H has dropped to 7 this morning. The patient not interested in blo od from the blood bank, wants to donate blood. However, unable to be done at this time. Alt ernative is iron infusions. I spoke with Dr. Borges, who is her primary care physician. The patient remains on the anemic side with a baseline hemoglobin of 8 and trends downward during her menstrual cycle, which she is currently on at this time. 5.Morbid obesity, BMI of 41. 6.Lower extremity edema. The patient does have chronic edema. 7.Eczema. 8.Gastrointestinal and deep venous thrombosis prophylaxis addressed. Plan: Likely discharge the patient in the next 24 to 48 hours depending on clinical improvement with her respiratory status. We will continue broad-spectrum IV antibiotics for now, a trial of nebulize r treatments. We will discontinue IV fluids, follow up on cultures. /HARLEY Voice ID: [id number] Report ID: [id number]
[2018-11-16] MEDS: LACTOBACILLUS/ACIDOPHILUS TAB PO SCH (20:41)
[2018-11-17] MEDS: ALBUTEROL 2.5 MG/3 ML NEB SOL NEB SCH ×4 (02:00→21:20)
[2018-11-17 05:03] LABS: Absolute Lymphocytes (CBC) 1.6 K/uL (0.7-4.9); Absolute Monocytes 0.8 K/uL (0.1-1.3); Absolute Neutrophil 6.2 K/uL (1.8-8.0); Basophils % 0.8 % (0-1.3); Eosinophils % 2.9 % (0-4.4); Hematocrit 21.7 % (36.0-45.0); Lymphocytes % 18.1 % (15.3-44.8); MPV 7.7 fL (7.6-11.3); Monocytes % 9.3 % (3.3-12.3); RBC Red Blood Cell Count 3.58 M/uL (3.86-4.86)
[2018-11-17 05:21] LABS: BUN Blood Urea Nitrogen 6 mg/dL (7-18); Bicarbonate 26 mmol/L (21-32); Glucose Level 98 mg/dL (74-106); Sodium Level 144 mmol/L (136-145)
[2018-11-17] MEDS ORDERED: SOD FERRIC GLUC COMPLX/SUCROSE 125 MG in NA CHLORIDE 0.9% 100 ML IV SCH (09:00)
[2018-11-17] MEDS: VANCOMYCIN 2 GM in NA CHLORIDE 0.9% 500 ML IVPB SCH ×2 (09:57→20:00)
[2018-11-17] MEDS: SOD FERRIC GLUC COMPLX/SUCROSE 125 MG in NA CHLORIDE 0.9% 100 ML IV SCH (09:57)
[2018-11-17] MEDS: CEFTRIAXONE/SWI 1gm 1 GM/10 ML SYR IV SCH (09:58)
[2018-11-17] MEDS: LACTOBACILLUS/ACIDOPHILUS TAB PO SCH ×2 (09:58→21:00)
[2018-11-17] MEDS ORDERED: FUROSEMIDE 20 MG/ 2ML VIAL IV SCH ×2 (10:12→10:13)
[2018-11-17] MEDS ORDERED: NA CHLORIDE 0.9% 500 ML ONE (13:40)
--- NOTE | 2018-11-17 20:18 | PN ---
Date of Progress Note: 11/17/2018 Subjective: The patient is seen and examined. Chart reviewed and case discussed with RN, Dr. Marcie arevalo, and Dr. Borges. The patient continues to be very short of breath. Hemoglobin dropped today. Medications: List reviewed. Physical Examination: Vital Signs: Temperature 97.1, heart rate 105, respirations 32, blood pressure 119/74, O2 93% on patricia m air. General: Awake, alert, oriented x3. Morbidly obese female, ill-appearing, in moderate respiratory d istress. CV: S1, S2. Sinus tachycardia. No murmurs. Peripheral pulses present bilaterally. Respiratory: The patient not taking deep breaths. Diminished breath sounds. No wheezing or crackle s. The patient is tachypneic with use of accessory muscles. Gastrointestinal: Abdomen is soft, nontender, nondistended. Positive bowel sounds. Extremities: No clubbing, cyanosis. The patient does have lower extremity edema, left worse than ri ght. Skin: Erythema has resolved on the left lower extremity. No rashes. Neuro: Nonfocal. Laboratory Data: Sodium 144, potassium 4, chloride 111, CO2 26, BUN 6, creatinine 0.61, glucose 98, calcium 8.2. WBC 9, H and H 6.6 and 21.7, platelets 375, neutrophils 68%. ABIMBOLA and double-stranded D NA antibodies pending. Blood cultures, no growth to date. Assessment And Plan: A 38-year-old female with: 1.Acute respiratory distress with hypoxemia, likely secondary to anemia versus atelectasis, PE has b een ruled out. Low probability on V/Q scan. We will continue on supplemental oxygen. 2.Sepsis secondary to left leg cellulitis, improving. White count is normalized. The patient, edel lubin, still tachycardic and tachypneic. We will continue antibiotics. 3.Left leg cellulitis, improving. Erythema resolved. Cultures are negative. 4.Iron deficiency anemia. Hemoglobin dropped at 6.6. The patient initially not interested in blood transfusion, however, now is agreeable. We will transfuse 2 units PRBCs. Extensively explained pos sible reactions including but not limited to fever, shakes, shortness of breath, transfusion related lung injury, and possibly even . She understands risks versus benefits and agrees for transfusi on. The patient did receive 2 iron transfusions; however, her main issue is lack of circulating. Sh e needs help with circulating oxygen, which can be improved with packed red blood cells. 5.Morbid obesity, BMI 41. 6.Lower extremity edema. 7.History of eczema. 8.Gastrointestinal and deep venous thrombosis prophylaxis, PPI and SCDs. No chemical anticoagulatio n due to anemia. /HARLEY Voice ID: [id number] Report ID: [id number]
[2018-11-17] MEDS ORDERED: NA CHLORIDE 0.9% 250 ML ONE (22:59)
[2018-11-18] MEDS: ALBUTEROL 2.5 MG/3 ML NEB SOL NEB SCH ×3 (02:25→13:24)
[2018-11-18 05:45] LABS: Absolute Lymphocytes (CBC) 1.9 K/uL (0.7-4.9); Absolute Neutrophil 8.6 K/uL (1.8-8.0); Basophils % 0.5 % (0-1.3); Eosinophils % 3.1 % (0-4.4); Hematocrit 27.3 % (36.0-45.0); Lymphocytes % 15.6 % (15.3-44.8); MPV 7.4 fL (7.6-11.3); Monocytes % 8.4 % (3.3-12.3); RBC Red Blood Cell Count 4.14 M/uL (3.86-4.86)
[2018-11-18 05:59] LABS: BUN Blood Urea Nitrogen 5 mg/dL (7-18); Bicarbonate 27 mmol/L (21-32); Glucose Level 101 mg/dL (74-106); Potassium 3.6 mmol/L (3.5-5.1); Sodium Level 145 mmol/L (136-145)
--- NOTE | 2018-11-18 07:37 | ECHO ---
HEIGHT: 5 ft 2 in WEIGHT: 224 lb 0 oz DATE OF STUDY: 11/17/[address]: Toribio Carrillo MD 2-DIMENSIONAL: YES M.MODE: YES DOPPLER: YES COLOR FLOW: YES TDS: YES PORTABLE: DEFINITY: BUBBLE STUDY: DIAGNOSIS: SHORTNESS OF BREATH, ARRHYTHMIA CARDIAC HISTORY: CATHERIZATION: NO SURGERY: NO PROSTHETIC VALVE: NO PACEMAKER: NO MEASUREMENTS (cm) DIASTOLIC (NORMALS) SYSTOLIC (NORMALS) IVSd 1.0 (0.6-1.2) LA Diam 2.9 (1.9-4.0) LVEF 65% LVIDd 4.0 (3.5-5.7) LVIDs 2.6 (2.0-3.5) %FS 35% LVPWd 1.1 (0.6-1.2) Ao Diam 2.6 (2.0-3.7) 2 DIMENSIONAL ASSESSMENT: RIGHT ATRIUM: NORMAL LEFT ATRIUM: NORMAL RIGHT VENTRICLE: NORMAL LEFT VENTRICLE: NORMAL TRICUSPID VALVE: NORMAL MITRAL VALVE: NORMAL PULMONIC VALVE: NORMAL AORTIC VALVE: NORMAL PERICARDIAL EFFUSION: NONE AORTIC ROOT: NORMAL LEFT VENTRICULAR WALL MOTION: NORMAL DOPPLER/COLOR FLOW: NORMAL COMMENTS: NORMAL 2-DIMENSIONAL ECHOCARDIOGRAM WITH DOPPLER. NO WALL MOTION ABNORMALITY. NO EFFUSION. TECHNICALLY DIFFICULT STUDY. TECHNOLOGIST: ARMANDO KING
[2018-11-18] MEDS ORDERED: POTASSIUM 25 MEQ EFFERV TAB PO ONE (07:41)
[2018-11-18] MEDS: VANCOMYCIN 2 GM in NA CHLORIDE 0.9% 500 ML IVPB SCH (08:00)
[2018-11-18] MEDS ORDERED: POTASSIUM CL SA 10 MEQ TAB PO ONE (09:03)
[2018-11-18] MEDS: LACTOBACILLUS/ACIDOPHILUS TAB PO SCH (09:04)
[2018-11-18] MEDS: SOD FERRIC GLUC COMPLX/SUCROSE 125 MG in NA CHLORIDE 0.9% 100 ML IV SCH (09:04)
[2018-11-18] MEDS: CEFTRIAXONE/SWI 1gm 1 GM/10 ML SYR IV SCH (09:05)
--- NOTE | 2018-11-18 11:35 | P.PN ---
Subjective Date of Service: 11/18/18 Chief Complaint: Shortness of breath and lower extremity edema Subjective: Improving (Patient is doing better swelling has decreased still having some shortness of breath on exertion) Review of Systems Respiratory: Shortness of Breath Neurological: Weakness Physical Examination - Vital Signs Temperature: 97.2 F Blood Pressure: 116/71 Pulse: 98 Respirations: 20 Pulse Ox (%): 98 - Physical Exam General: Alert, Oriented x3 HEENT: Atraumatic Neck: Supple Respiratory: Clear to auscultation bilaterally, Diminished Assessment & Plan - Problems (Diagnosis) (1) Left leg cellulitis Onset Date: 11/14/18 Current Visit: Yes Status: Acute Plan: Patient's cellulitis has improved significantly patient to continue with Bactrim cultures are all negative (2) Shortness of breath Current Visit: Yes Status: Acute Plan: A still has some shortness of breath on exertion probably dependent atelectasis I recommended trial of bronchodilator room-air sat is 93-94% continue with incentive spirometry at home
[2018-11-18] MEDS ORDERED: VANCOMYCIN 2 GM in NA CHLORIDE 0.9% 500 ML IVPB SCH (13:00)
--- NOTE | 2018-11-19 03:20 | DS ---
Date of Discharge: 11/18/2018 Consultants: Dr. Pappas with Pulmonology. Admitting Diagnoses: 1. Left leg cellulitis. 2. Iron-deficiency anemia. 3. Sepsis. 4. Family history of systemic lupus erythematosus. 5. Morbid obesity, body mass index 41. 6. Tachycardia. Discharge Diagnoses: 1. Acute respiratory distress with hypoxemia. 2. Sepsis secondary to left leg cellulitis, improved. 3. Yjulh-ta-szafeir blood loss anemia. The patient does have history of iron- deficiency anemia, worsened with menstruation and status post 2 units PRBCs. 4. Morbid obesity, body mass index 41. 5. Lower extremity edema, deep venous thrombosis ruled out. 6. History of eczema. 7. Adjustment disorder, not otherwise specified, with anxious mood. 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 The patient has a history of axilla and lower extremity edema which is chronic. Therefore, susceptible to cellulitis. Came in septic, elevated white blood cell count and procalcitonin. The white count was 21,000. The patient was started on IV antibiotics and responded well. Her erythema improved, and DVT was ruled out by Doppler sonogram, which was negative. The patient's blood cultures remained negative final. Her sepsis improved. Her white count normalized. The patient does have history of anemia. However, hemoglobin dropped to as low as 6.6. Initially, the patient was reluctant to receive blood transfusion, wanted her to donate the blood, who is the same blood type. However, conferring with the blood bank, it would be a long process and outside the policy of the hospital is my understanding. Therefore, the patient was started on IV iron. Ferritin level was checked, which was normal. The patient's hemoglobin dropped further, and she was counseled regarding blood transfusion. She finally agreed and was given 2 units of PRBCs. Hemoglobin responded appropriately and came up to 8.6. The patient was currently on her menstrual cycle, which is the cause of her iron-deficiency anemia. The patient has been in discussion with her family physician regarding Depo Provera or other control method to prevent administration. However, due to side effects of the medications, does not wish to be placed on any of these medicines. She also does not wish to have the intradermal OCPs. The patient did develop some respiratory distress, was hypoxic and hypoxemic on ABG with pO2 of 64. The patient was seen by Dr. Pappas with Pulmonology. She was unable to get CT angio of the chest due to lack of appropriate IV access. Therefore, V/Q scan was done, which showed low probability for PE, and she did require supplemental oxygen. The patient was able to be weaned off oxygen. She was given nebulizer treatments, which improved her condition. The patient was then doing well. She was able to ambulate without significant dyspnea. Her O2 saturations were 94% on room air. The patient was then cleared from Pulmonology standpoint. The patient was then discharged home in a stable condition. Medications: List reviewed. Diet: Calorie-restricted diet. Medications: As per medication reconciliation list. Finish a course of antibiotics for total of 10 days. Will also receive bronchodilator and will work with incentive spirometer. Followup: Follow up with primary care physician in 2 to 3 days. Follow up with Pulmonology, Dr. Pappas, in 2 weeks. Return to ER for worsening condition. Physical Examination: General: Awake, alert, oriented x3. Morbidly obese female. CV: S1, S2. Sinus tachycardia. Respiratory: Moving air well bilaterally. No wheezing. Gastrointestinal: Abdomen is soft, nontender, nondistended. Positive bowel sounds. Extremities: No clubbing or cyanosis. Lower extremity edema is present with left worse than right, improving. Skin: No erythema. Neurologic: Nonfocal. Total time spent discharging the patient was 45 minutes. /HARLEY Voice ID: [id number] Report ID: [id number]
== END 2018-11-18 14:10 | disposition home or self-care (01) | DRG 871 ==
LOC: ER 11:28 → ERHOLD 15:27 → 4TH 16:49
PROVIDERS: ADMIT Family Medicine; ATTEND Family Medicine
PROC: 02HV33Z Insertion of Infusion Device into Superior Vena Cava, Percutaneous Approach (ICD-10-PCS; principal; 2018-11-16)
PROC: B548ZZA Ultrasonography of Superior Vena Cava, Guidance (ICD-10-PCS; 2018-11-16)
PROC: 30243N1 Transfusion of Nonautologous Red Blood Cells into Central Vein, Percutaneous Approach (ICD-10-PCS; 2018-11-17)
DX: A41.9 Sepsis, unspecified organism (principal); J18.9 Pneumonia, unspecified organism; L03.116 Cellulitis of left lower limb; D62 Acute posthemorrhagic anemia; Z68.41 Body mass index [BMI] 40.0-44.9, adult; D50.0 Iron deficiency anemia secondary to blood loss (chronic); E66.01 Morbid (severe) obesity due to excess calories; L30.9 Dermatitis, unspecified; F43.22 Adjustment disorder with anxiety; R06.03 Acute respiratory distress; Z88.5 Allergy status to narcotic agent; Z82.69 Family history of other diseases of the musculoskeletal system and connective tissue; Z91.013 Allergy to seafood; R00.0 Tachycardia, unspecified; R09.02 Hypoxemia
CPT/HCPCS: 36415; 71045; 71046; 78582; 80048; 80053; 80076; 80202; 81003; 81025; 82550; 82728; 82805; 83036; 83605; 83735; 84100; 84132; 84145; 85014; 85018; 85025; 85379; 85610; 85652; 86038; 86225; 86850; 86900; 86901; 87040; 93005; 93306; 93971; 94640; 94760; 96361; 96366; 96375; 99285; A9540; A9558; J0696; J1650; J1940; J2175; J2405; J2550; J2916; J3370; J3475; J7030; P9016

== ENCOUNTER 2020-04-10 09:38 | Observation (INO) | payer BC ==
--- OUTSIDE RECORDS SUMMARY | 2020-04-10 10:26 | XMS REPORT | Continuity of Care Document ---
:[address] [facility] t Address [address] [place] [address] Care Team Providers Name Role Phone Unavailable Unavailable Unavailable Payers Payer Name Policy Type Policy Number Effective Date Expiration Date S ource Problems This patient has no known problems. Allergies, Adverse Reactions, Alerts Allergy Allergy Status Severity Reaction(s) Onset Inactive Treating Comm ents Source Name Type Date Date Clinician No Known DA Active U 2019-0 [facility] No Known DA Active U 2019-0 [facility] 4-18 [facility] Medications This patient has no known medications. Procedures This patient has no known procedures. Results Test Description Test Time Test Comments Results Result [facility] serafin Comments PELVIC SIDEWALL 2019-03-15 16:24:00 ----RUN DATE: 03/16/19 [facility] PAGE 1 RUN TIME: 1249 Specimen Inquiry RUN USER: INTERFACE ----PATIENT: NIESHA MONREAL [facility] #: [id number] AGE/SX: 39/F ROOM: [facility] RE03/14/19REG DR: Maki Pozo MD : 82 BED: A DIS: 03/15/19 STATUS: DIS Cait TLOC: ---- SPEC #: [id number] RECD: 03/14/19 STATUS: SOUT REQ #: [id number] CAREY: 03/14/19- SUBM DR: Maki Pozo MD ENTERED: 03/14/19 SP TYPE: PELVIC [facility] DR: ORDERED: LEVEL IV/3 CODES: [id number] - UTERUS, NOS [id number] - OVARY, NOS [id number] - PELVIC GENITAL PROCEDURES: LEVEL IV (Incomplete) TISSUES: PELVIC GENITAL STRUCTURES, NOS - RIGHT PELVIC SIDEWALL UTERUS, NOS - UTERUS, CERVIX AND BILATERAL FALLOPIAN TUBES OVARY, NOS - LEFT OVARIAN CYST CLINICAL HISTORY 39 year old, menorrhagia (wpd) FINAL DIAGNOSIS Right pelvic sidewall endometriosis, excision: - endometriosis Uterus, right and left fallopian tubes, hysterectomy and bilateral salpingectomy: - cervix, no significant pathologic alteration - benign proliferative phase endometrium - leiomyoma of myometrium - uterine serosa, no significant pathologic alteration - bilateral fallopian tubes, no significant pathologic alteration Left ovarian cyst, excision: - mature cystic teratoma, 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 Right pelvic sidewall endometriosis 2. Uterus, cervix, right fallopian tube and left fallopian tube 3. Left ovarian cyst CONTINUED ON NEXT PAGE ----RUN DATE: 03/16/19 [facility] PAGE 2 RUN TIME: 1249 Specimen Inquiry RUN USER: INTERFACE ----SPEC #: [id number] PATIENT: NIESHA MONREAL [place] #[id number] (Continued) GROSS DESCRIPTION (Continued) Each specimen is labeled with the patient's name and medical record number. Specimen #1 is designated "right pelvic sidewall endometriosis" and consists of a 0.6 x 0.4 x 0.2 cm stein-pink, cauterized, rubbery tissue, submitted in toto as A1. Specimen #2 is designated "uterus, cervix, right fallopian tube and left fallopian tube". The specimen consists of a 185 gm, 12.5 x 8.5 x 6.0 cm supracervically amputated fragmented uterus with a detached cervix and fimbriated fallopian tubes (right 4.0 cm in length and left 7.5 cm in length). The uterine serosa is stein-pink, hyperemic and slightly nodular. The 3.5 cm ectocervix displays a central 1 cm slit-like os. The endometrium is stein-red and hemorrhagic with a thickness measuring up to 0.2 cm. The myometrium is trabeculated with a wall thickness measuring up to 2.5 cm. There is a 4.5 cm well-circumscribed nodule. The cut surfaces are stein and whorled. There are no areas of hemorrhage or necrosis. The fallopian tubes are pink-purple and hyperemic. The lumens are pinpoint. Section code: B1 - cervix, B2 - anterior endomyometrium, B3 - posterior endomyometrium, B4 - nodule, B5 - apparel trimmings sales representative sections of right fallopian tube, B6 - apparel trimmings sales representative sections of left fallopian tube. Specimen #3 is designated "left ovarian cyst" and consists of a 5.0 x 3.5 x 2.5 cm disrupted unilocular cystic structure. The outer surface is pink-purple and hyperemic. The cyst cavity contains stein-yellow, grumous material admixed with hair. The cyst lining is predominantly stein and trabeculated. There is a single 1.5 cm hair bearing nodule. The cut surfaces are bright yellow and homogenous with an embedded 1.0 cm fragment of bone. The cut surfaces of the wall are stein, firm and thickened. Gallery Or Museum Guide sections are submitted as C1 - C3. lonnie/hai 03/14/19 @ 1710 -------- Signed Beatris Hartley MD 03/15/19 1624 ---- END OF REPORT HGB HCT 2019-03-15 05:49:00 Test Item Value Reference Range Interpretation Comme nts HEMOGLOBIN (test code = HGB) 10.4 g/dL 10.7-13.9 L HEMATOCRIT (test code = HCT) 33.9 % 32.1-42.1 N UR HCG [id number] 09:58:00 Test Item Value Reference Range Interpretation Comments UR HCG QUAL (test NEGATIVE 1. Very di lute urine code = HCGQLU) specimens, as indicated by a lowspecific g ravity, may not contain rep resentative levels ofhCG. 2 . False negative result s may occur when the levels of hCGare below the sensi tivity level of the test. If is still suspec devorah, a first morningurine sp ecimen should be colle cted 48 hours later and tested. AG HEPATITIS B [id number] 14:43:00 Test Item Value Reference Range Interpretation Comments AG HEPATITIS B SURFACE (test code NONREACTIVE NONREACTIVE = HBSAG) IS CONSENT FORM SIGNED FOR HIV TESTING? B HEPATITIS C [id number] 14:43:00 Test Item Value Reference Range Interpretation Comments AB HEPATITIS C (test code = NONREACTIVE NONREACTIVE HCVAB) SIGNAL TO CUTOFF (test code = 0.05 <0.80 N CUTOFF) IS CONSENT FORM SIGNED FOR HIV TESTING? YAB HIV 1 14:43:00 Test Item Value Reference Range Interpretation Comments AB HIV 1 2 (test NONREACTIVE NONREACTIVE [facility] [id number]) 4th Gen HIV Ag/Ab Combo Screen IS CONSENT FORM SIGNED FOR HIV TESTING? YURINALYSIS [id number] 14:35:00 Test Item Value Reference Range Interpretation Comments UA COLOR (test code = YELLOW YELLOW COLU) UA APPEARANCE (test code CLOUDY CLEAR A = APPU) UA GLUCOSE DIPSTICK (test NEGATIVE NEG code = DGLUU) UA BILIRUBIN DIPSTICK NEGATIVE NEG (test code = BILU) UA KETONE DIPSTICK (test NEGATIVE NEG code = KETU) UA SPECIFIC GRAVITY (test 1.020 1.001-1.035 N code = SGU) UA BLOOD DIPSTICK (test NEG NEG code = TESS) UA PH DIPSTICK (test code 6.0 5-9 = GURJIT) UA PROTEIN DIPSTICK (test NEGATIVE NEG code = PROU) UA UROBILINIOGEN DIPSTICK NEGATIVE mg/dL NEG (test code = URO) UA NITRITE DIPSTICK (test NEG NEG code = DIAMOND) UA LEUKOCYTE ESTERASE NEG NEG DIPSTICK (test code = LEUU) UA WBC (test code = WBCU) 6-10 #/hpf NONE SEEN A UA RBC (test code = RBCU) 3-5 #/hpf NONE SEEN A UA EPITHELIAL CELLS (test TOO NUMEROUS TO CNT RARE-FEW A code = EPIU) #/HPF UA BACTERIA (test code = RARE /HPF RARE-FEW BACU) UA MUCUS (test code = 2+ NONE SEEN MUCU) UA AMORPHOUS SEDIMENT 1+ (test code = AMORU) URINE SAMPLE: CLEAN CATCHHCG SERUM [id number] 13:52:00 Test Item Value Reference Range Interpretation Comments HCG SERUM QUAL (test code = HCGQL) NEGATIVE CBC W/AUTO [id number] 13:24:00 Test Item Value Reference Range Interpretation Comments WHITE BLOOD CELL (test code = WBC) 8.2 K/mm3 6.6-12.1 N RED BLOOD CELL (test code = RBC) 4.36 M/mm3 3.45-5.01 N HEMOGLOBIN (test code = HGB) 10.8 g/dL 10.7-13.9 N HEMATOCRIT (test code = HCT) 34.9 % 32.1-42.1 N MEAN CELL VOLUME (test code = MCV) 80 fL 84.1-94.8 L MEAN CELL HGB (test code = MCH) 24.8 pg 27-35 L MEAN CELL HGB CONCETRATION (test 30.9 gm/dL 32.2-34.1 L code = MCHC) RED CELL DISTRIBUTION WIDTH (test 15.1 % 12.4-16.5 N code = RDW) PLATELET COUNT (test code = PLT) 458 K/mm3 133-385 H IMMATURE PLATELET FRACTION (test 0.0 % 0.0-10.8 N code = IPF) MEAN PLATELET VOLUME (test code = 9.3 fl 9.1-12.7 N MPV) NEUTROPHIL % (test code = NT%) 56.5 % 56.5-79.4 N LYMPHOCYTE % (test code = LY%) 30.9 % 14.3-34.3 N MONOCYTE % (test code = MO%) 9.1 % 5.1-10.4 N EOSINOPHIL % (test code = EO%) 2.4 % 0.1-3.0 N BASOPHIL % (test code = BA%) 0.6 % 0.1-1.0 N NEUTROPHIL # (test code = NT#) 4.6 K/mm3 LYMPHOCYTE # (test code = LY#) 2.5 K/mm3 MONOCYTE # (test code = MO#) 0.8 K/mm3 EOSINOPHIL # (test code = EO#) 0.20 K/mm3 BASOPHIL # (test code = BA#) 0.1 K/mm3 RBC MORPHOLOGY REQUIRED (test code NORMAL NORMAL = RBCM) PLATELET MORPHOLOGY REQUIRED (test NORMAL NORMAL code = PLTMR)
[2020-04-10] MEDS ORDERED: NA CHLORIDE 0.9% 3,000 ML ONE (10:28)
[2020-04-10] MEDS ORDERED: Levofloxacin 750mg IV 750 MG/150 ML BAG IV ONE (10:29)
[2020-04-10] MEDS ORDERED: VANCOMYCIN/NS 1 gm 1 GM/250 ML BAG IV ONE (10:30)
[2020-04-10 10:34] LABS: Basophils % 0.3 % (0-1.3); Hematocrit 38.3 % (36.0-45.0); MPV 7.5 fL (7.6-11.3); RBC Red Blood Cell Count 4.64 M/uL (3.86-4.86)
[2020-04-10 10:38] LABS: Protime INR 1.14
[2020-04-10 11:02] LABS: ALT/SGPT 20 U/L (12-78); AST/SGOT 11 U/L (15-37); Albumin 3.2 g/dL (3.4-5.0); Alkaline Phosphatase 84 U/L (45-117); Amylase 26 U/L (25-115); BUN Blood Urea Nitrogen 8 mg/dL (7-18); Bicarbonate 22 mmol/L (21-32); Bilirubin Direct 0.2 mg/dL (0-0.2); CKMB Creatine Kinase MB < 1.0 ng/mL (0.3-3.6); Creatine Phosphokinase 42 U/L (26-192); Glucose Level 107 mg/dL (74-106); Lipase 65 U/L (73-393); Potassium 3.7 mmol/L (3.5-5.1); Protein, Total 7.8 g/dL (6.4-8.2); Sodium Level 136 mmol/L (136-145); Troponin (Emerg Dept Use Only) < 0.02 ng/mL (0.0-0.045)
--- NOTE | 2020-04-10 12:00 | RAD REPORT ---
EXAM DESCRIPTION: RAD - Knee Right 3 View - 04/10/2020 11:45 am CLINICAL HISTORY: Right knee pain FINDINGS: No fracture or dislocation is seen. No bony destructive lesion. Diffuse edema within the soft tissues
--- NOTE | 2020-04-10 12:02 | RAD REPORT ---
EXAM DESCRIPTION: RAD - Foot Right 2 View - 04/10/2020 11:45 am CLINICAL HISTORY: Right foot pain FINDINGS: Limited two view series No fracture or dislocation seen. No bony destructive lesion noted. Diffuse edema within the soft tissue
--- NOTE | 2020-04-10 12:29 | ER ---
Nurse's Notes [facility] Name: Blossom Diamond Age: 40 yrs Sex: Female : 1980 Arrival Date: 04/10/2020 Time: 09:40 Bed 20 Private MD: Diagnosis: Cellulitis, unspecified-Right leg and foot Presentation: 04/10 10:01 Chief complaint: Patient states: s/p fall to her right anterior knee, bruising to the sv right posterior knee, reports after the fall she started developing cellulitis to the RLE. Hx sepsis with the cellulitis. Coronavirus screen: Proceed with normal triage. Patient denies a cough. Patient reports shortness of breath or difficulty breathing. Patient reports a measured and/or subjective temperature greater than 100.4F. Patient denies travel on a cruise ship or to a country the [facility] currently lists as an affected area. Patient denies contact with known and/or suspected case of COVID-19. Ebola Screen: No symptoms or risks identified at this time. Initial Sepsis Screen: Does the patient meet any 2 criteria? RR > 20 per min. HR > 90 bpm. Yes Does the patient have a suspected source of infection? Yes: Skin breakdown/wound. Risk Assessment: Do you want to hurt yourself or someone else? Patient reports no desire to harm self or others. Onset of symptoms was April 09, 2020. 10:01 Method Of Arrival: Wheelchair sv 10:01 Acuity: ELIAS 2 sv SOFT HAT BINDER: 12:00 LMP N/A - Hysterectomy ca1 Historical: - Allergies: 10:04 Codeine; sv - PMHx: 10:04 Cellulitis; Anemia; eczema; sv - PSHx: 10:04 Hysterectomy; ; sv - Immunization history:: Adult Immunizations up to date. - Social history:: Smoking status: Patient denies any tobacco usage or history of. Screenin:00 Abuse screen: Denies threats or abuse. Denies injuries from another. Nutritional ca1 screening: No deficits noted. Tuberculosis screening: No symptoms or risk factors identified. Fall Risk IV access (20 points). Assessment: 10:00 General: Appears in no apparent distress. comfortable, Behavior is calm, cooperative, ca1 appropriate for age, Reports fever for 12-24 hours. Pain: Complains of pain in right leg Pain currently is 5 out of 10 on a pain scale. Pain began 1 day ago. Neuro: Level of Consciousness is awake, alert, obeys commands, Oriented to person, place, time, situation, Appropriate for age. Cardiovascular: Heart tones S1 S2 present Capillary refill < 3 seconds Patient's skin is warm and dry. Rhythm is sinus tachycardia. Respiratory: Airway is patent Respiratory effort is even, unlabored, Respiratory pattern is regular, symmetrical, Breath sounds are clear bilaterally. GI: Abdomen is round non-distended, Bowel sounds present X 4 quads. Abd is soft and non tender X 4 quads. : No signs and/or symptoms were reported regarding the genitourinary system. EENT: No signs and/or symptoms were reported regarding the EENT system. Derm: Skin is intact, is healthy with good turgor, Skin is pink, warm \T\ dry. Musculoskeletal: Circulation, motion, and sensation intact. Capillary refill < 3 seconds, Swelling present in right foot and right leg. 11:10 Reassessment: Patient appears in no apparent distress at this time. Patient and/or ca1 family updated on plan of care and expected duration. Pain level reassessed. Patient is alert, oriented x 3, equal unlabored respirations, skin warm/dry/pink. 11:59 Reassessment: Patient appears in no apparent distress at this time. Patient is alert, ca1 oriented x 3, equal unlabored respirations, skin warm/dry/pink. Patient states feeling better. 12:41 Reassessment: Patient appears in no apparent distress at this time. Patient and/or ca1 family updated on plan of care and expected duration. Pain level reassessed. Patient is alert, oriented x 3, equal unlabored respirations, skin warm/dry/pink. Hospitalist at bedside. 13:43 Reassessment: Patient appears in no apparent distress at this time. Patient and/or ca1 family updated on plan of care and expected duration. Pain level reassessed. Patient is alert, oriented x 3, equal unlabored respirations, skin warm/dry/pink. 14:05 Reassessment: Called for report, was put on hold. ca1 14:55 Reassessment: Patient appears in no apparent distress at this time. Patient and/or ca1 family updated on plan of care and expected duration. Pain level reassessed. Patient is alert, oriented x 3, equal unlabored respirations, skin warm/dry/pink. Called for report. Nurse will call back. Vital Signs: 10:01 BP 123 / 69; Pulse 126; Resp 28; Temp 99.8; Pulse Ox 96% ; Weight 104.33 kg; Height 5 sv ft. 2 in. (157.48 cm); Pain 6/10; 11:00 BP 130 / 82; Pulse 108; Resp 20 S; Temp 99.1(O); Pulse Ox 100% on R/A; ca1 11:59 BP 139 / 78; Pulse 116; Resp 15 S; Pulse Ox 99% on R/A; ca1 12:43 BP 128 / 67; Pulse 118; Resp 20 S; Pulse Ox 99% on R/A; ca1 13:43 BP 131 / 80; Pulse 114; Resp 20 S; Temp 99.4(O); Pulse Ox 99% on R/A; ca1 15:02 BP 119 / 52; Pulse 116; Resp 20 S; Pulse Ox 96% on R/A; ca1 10:01 Body Mass Index 42.07 (104.33 kg, 157.48 cm) sv ED Course: 09:40 Patient arrived in ED. as 09:49 Buck King MD is Attending Physician. kdr 10:00 No provider procedures requiring assistance completed. ca1 10:00 Patient has correct armband on for positive identification. Bed in low position. Call ca1 light in reach. Side rails up X 1. nuclear monitoring technician on. Pulse ox on. NIBP on. 10:00 Arm band placed on. ca1 10:02 Jeannette Damian, RN is Primary Nurse. ca1 10:04 Triage completed. sv 10:18 Initial lab(s) drawn, by ca, sent to lab. First set of blood cultures drawn. Inserted ca1 saline lock: 22 gauge in right hand, using aseptic technique. Blood collected. 10:30 EKG done, by ED staff, reviewed by Buck King MD. dh3 10:36 Inserted saline lock: 20 gauge in right antecubital area, using aseptic technique. dh3 11:45 Knee Right 3 View XRAY In Process Unspecified. EDMS 11:45 Foot Right 2 View XRAY In Process Unspecified. EDMS 12:13 Urine collected: clean catch specimen, cloudy, Amount Voided: 90mL. ca1 12:27 Melvin Stewart DO is Hospitalizing Provider. kdr 13:07 Patient admitted, IV remains in place. ca1 13:27 Urine Culture Sent. aa5 Administered Medications: 10:20 Drug: NS 0.9% (30 ml/kg) 30 ml/kg Route: IV; Rate: bolus; Site: right hand; ca1 13:06 Follow up: Urine output 150 ml; Response: No adverse reaction; IV Status: Completed ca1 infusion 10:36 Drug: LevaQUIN 750 mg Volume: 150 ml; Route: IVPB; Infused Over: 90 mins; Site: right ca1 antecubital; 12:20 Follow up: Response: No adverse reaction; IV Status: Completed infusion ca1 11:21 Drug: vancoMYCIN 1 grams Route: IVPB; Infused Over: 2 hrs; Site: right hand; ca1 13:41 Follow up: Response: No adverse reaction; IV Status: Completed infusion ca1 Output: 13:06 Urine: 150ml; Total: 150ml. ca1 Outcome: 12:28 Decision to Hospitalize by Provider. kdr 15:25 Admitted to Tele accompanied by tech, via wheelchair, room 431, with chart, Report ca1 called to Mer Mccracken RN 15:25 Condition: stable 15:25 Instructed on the need for admit. 15:35 Patient left the ED. ca1 Signatures: Dispatcher [employer] Shelley Pedro, RN RN Buck Morales MD MD kdr Martinez, Amelia as Calderon, Audri, RN RN aa5 Jessica Ash [facility] Jeannette Damian RN RN ca1
--- NOTE | 2020-04-10 12:29 | EDPHYS ---
Physician Documentation [facility] Name: Blossom Diamond Age: 40 yrs Sex: Female : 1980 Arrival Date: 04/10/2020 Time: 09:40 Bed 20 Private MD: ED Physician Buck King HPI: 04/10 10:38 This 40 yrs old Female presents to ER via Wheelchair with complaints of kdr Cellulitis. 10:38 The patient presents with cellulitis of the right leg. Description: erythematous, hot, kdr swollen, warm. Onset: The symptoms/episode began/occurred gradually, yesterday. Possible cause(s): The patient has some healing wounds on the left foot which is swollen and erythematous. Associated signs and symptoms: Pertinent positives: erythema, fever, swelling. Modifying factors: the symptoms are alleviated by nothing, the symptoms are aggravated by movement, walking, pressure, touching. Severity of symptoms: At their worst the symptoms were mild, moderate, just prior to arrival, in the emergency department the symptoms are unchanged. The patient has experienced a previous episode, Was admitted November for the same - normally gets cellulitis of the left leg but today it is the right leg. [employer]: 12:00 LMP N/A - Hysterectomy ca1 Historical: - Allergies: 10:04 Codeine; sv - PMHx: 10:04 Cellulitis; Anemia; eczema; sv - PSHx: 10:04 Hysterectomy; ; sv - Immunization history:: Adult Immunizations up to date. - Social history:: Smoking status: Patient denies any tobacco usage or history of. ROS: 10:38 Eyes: Negative for injury, pain, redness, and discharge, ENT: Negative for injury, kdr pain, and discharge, Neck: Negative for injury, pain, and swelling, Cardiovascular: Negative for chest pain, palpitations, and edema, Respiratory: Negative for shortness of breath, cough, wheezing, and pleuritic chest pain, Abdomen/GI: Negative for abdominal pain, nausea, vomiting, diarrhea, and constipation, Back: Negative for injury and pain, : Negative for injury, bleeding, discharge, and swelling, Neuro: Negative for headache, weakness, numbness, tingling, and seizure activity. Psych: Negative for depression, anxiety, suicide ideation, homicidal ideation, and hallucinations, Allergy/Immunology: Negative for hives, rash, and allergies, Endocrine: Negative for neck swelling, polydipsia, polyuria, polyphagia, and marked weight changes, Hematologic/Lymphatic: Negative for swollen nodes, abnormal bleeding, and unusual bruising. 10:38 Constitutional: Positive for chills, fever, malaise, Negative for poor PO intake, weight loss. 10:38 Skin: Positive for cellulitis, erythema, of the lateral aspect of right foot, medial aspect of right foot and dorsum of right foot. Exam: 10:38 Constitutional: This is a well developed, well nourished patient who is awake, alert, kdr and in no acute distress. Head/Face: Normocephalic, atraumatic. Eyes: Pupils equal round and reactive to light, extra-ocular motions intact. Lids and lashes normal. Conjunctiva and sclera are non-icteric and not injected. Cornea within normal limits. Periorbital areas with no swelling, redness, or edema. Neck: Trachea midline, no thyromegaly or masses palpated, and no cervical lymphadenopathy. Supple, full range of motion without nuchal rigidity, or vertebral point tenderness. No Meningismus. Chest/axilla: Normal chest wall appearance and motion. Nontender with no deformity. No lesions are appreciated. Cardiovascular: Regular rate and rhythm with a normal S1 and S2. No gallops, murmurs, or rubs. Normal PMI, no JVD. No pulse deficits. Respiratory: Lungs have equal breath sounds bilaterally, clear to auscultation and percussion. No rales, rhonchi or wheezes noted. No increased work of breathing, no retractions or nasal flaring. Abdomen/GI: Soft, non-tender, with normal bowel sounds. No distension or tympany. No guarding or rebound. No evidence of tenderness throughout. Back: No spinal tenderness. No costovertebral tenderness. Full range of motion. MS/ Extremity: Pulses equal, no cyanosis. Neurovascular intact. Full, normal range of motion. Neuro: Awake and alert, GCS 15, oriented to person, place, time, and situation. Cranial nerves II-XII grossly intact. Motor strength 5/5 in all extremities. Sensory grossly intact. Cerebellar exam normal. Normal gait. Psych: Awake, alert, with orientation to person, place and time. Behavior, mood, and affect are within normal limits. 10:38 Skin: cellulitis, that is moderate, confluent, on the lateral aspect of right calf, right ankle, right calf, right Achilles, medial aspect of right calf, right tapia and dorsum of right foot. Vital Signs: 10:01 BP 123 / 69; Pulse 126; Resp 28; Temp 99.8; Pulse Ox 96% ; Weight 104.33 kg; Height 5 sv ft. 2 in. (157.48 cm); Pain 6/10; 11:00 BP 130 / 82; Pulse 108; Resp 20 S; Temp 99.1(O); Pulse Ox 100% on R/A; ca1 11:59 BP 139 / 78; Pulse 116; Resp 15 S; Pulse Ox 99% on R/A; ca1 12:43 BP 128 / 67; Pulse 118; Resp 20 S; Pulse Ox 99% on R/A; ca1 13:43 BP 131 / 80; Pulse 114; Resp 20 S; Temp 99.4(O); Pulse Ox 99% on R/A; ca1 15:02 BP 119 / 52; Pulse 116; Resp 20 S; Pulse Ox 96% on R/A; ca1 10:01 Body Mass Index 42.07 (104.33 kg, 157.48 cm) sv MDM: 12:28 Patient medically screened. kdr 12:28 Data reviewed: vital signs, nurses notes, lab test result(s), radiologic studies. kdr Counseling: I had a detailed discussion with the patient and/or guardian regarding: the historical points, exam findings, and any diagnostic results supporting the discharge/admit diagnosis, lab results, radiology results, the need for further work-up and treatment in the hospital. 04/10 10:05 Order name: Amylase, Serum; Complete Time: 12:19 kdr 04/10 10:05 Order name: Basic Metabolic Panel; Complete Time: 12:19 kdr 04/10 10:05 Order name: Blood Culture Adult (2) kdr 04/10 10:05 Order name: CBC with Diff; Complete Time: 12:19 kdr 04/10 10:05 Order name: Ckmb; Complete Time: 12:19 kdr 04/10 10:05 Order name: CPK; Complete Time: 12:19 kdr 04/10 10:05 Order name: Lactate; Complete Time: 12:19 kdr 04/10 10:05 Order name: LFT's; Complete Time: 12:19 kdr 04/10 10:05 Order name: Lipase; Complete Time: 12:19 kdr 04/10 10:05 Order name: Procalcitonin; Complete Time: 12:19 kdr 04/10 10:05 Order name: Protime (+inr); Complete Time: 12:19 kdr 04/10 10:05 Order name: Ptt, Activated; Complete Time: 12:19 kdr 04/10 10:05 Order name: Troponin (emerg Dept Use Only); Complete Time: 12:19 kdr 04/10 10:05 Order name: Urine Microscopic Only kdr 04/10 10:05 Order name: Accucheck; Complete Time: 10:39 kdr 04/10 10:05 Order name: Cardiac monitoring; Complete Time: 10:39 kdr 04/10 10:05 Order name: EKG - Nurse/Tech; Complete Time: 10:39 kdr 04/10 10:05 Order name: IV Saline Lock - Large Bore; Complete Time: 10:39 kdr 04/10 10:05 Order name: Labs collected and sent; Complete Time: 10:39 kdr 04/10 10:05 Order name: O2 Per Protocol; Complete Time: 10:39 kdr 04/10 10:05 Order name: O2 Sat Monitoring; Complete Time: 10:40 kdr 04/10 10:42 Order name: Glucose, Ancillary Testing; Complete Time: 12:19 EDMS 04/10 10:46 Order name: Knee Right 3 View XRAY; Complete Time: 12:19 kdr 04/10 10:46 Order name: Foot Right 2 View XRAY; Complete Time: 12:19 kdr 04/10 12:18 Order name: Urine Dipstick--Ancillary (enter results) em1 04/10 12:46 Order name: Urine Culture EDMS 04/10 10:05 Order name: Urine Dipstick-Ancillary (obtain specimen); Complete Time: 12:13 kdr Administered Medications: 10:20 Drug: NS 0.9% (30 ml/kg) 30 ml/kg Route: IV; Rate: bolus; Site: right hand; ca1 13:06 Follow up: Urine output 150 ml; Response: No adverse reaction; IV Status: Completed ca1 infusion 10:36 Drug: LevaQUIN 750 mg Volume: 150 ml; Route: IVPB; Infused Over: 90 mins; Site: right ca1 antecubital; 12:20 Follow up: Response: No adverse reaction; IV Status: Completed infusion ca1 11:21 Drug: vancoMYCIN 1 grams Route: IVPB; Infused Over: 2 hrs; Site: right hand; ca1 13:41 Follow up: Response: No adverse reaction; IV Status: Completed infusion ca1 Disposition: 04/10/20 12:28 Hospitalization ordered by Melvin Stewart for Inpatient Admission. Preliminary diagnosis is Cellulitis, unspecified - Right leg and foot. - Bed requested for Telemetry/MedSurg (observation). - Status is Inpatient Admission. ca1 - Condition is Fair. - Problem is new. - Symptoms are unchanged. Signatures: Dispatcher [employer] EDMS Zee Erazo RN RN kl Verde, Stephanie, RN RN sv Rittger, Kevin, MD MD [facility] Jeannette Damian RN RN ca1 Corrections: (The following items were deleted from the chart) 10:25 10:07 Chest Single View+RAD.RAD.BRZ ordered. [facility] 13:51 12:28 Hospitalization Ordered by Melvin Stewart DO for Inpatient Admission. Preliminary diagnosis is Cellulitis, unspecified - Right leg and foot. Bed requested for Telemetry/MedSurg (observation). Status is Inpatient Admission. Condition is Fair. Problem is new. Symptoms are unchanged. kdr 15:35 13:51 04/10/2020 12:28 Hospitalization Ordered by Melvin Stewart DO for Inpatient ca1 Admission. Preliminary diagnosis is Cellulitis, unspecified - Right leg and foot. Bed requested for Telemetry/MedSurg (observation). Status is Inpatient Admission. Condition is Fair. Problem is new. Symptoms are unchanged. kl
[2020-04-10 12:38] LABS: Urine Blood 1+ (NEG); Urine Glucose NEGATIVE (NEG); Urine Protein NEGATIVE (NEG); Urine pH 7.5 (5.0-7.0)
[2020-04-10 12:44] LABS: Urine Bacteria 20-50 /HPF (<20); Urine Culture Reflex Order REFLEXED; Urine Mucus 1+ /HPF (NONE SEEN)
--- NOTE | 2020-04-10 15:06 | P.HP ---
Certification for Inpatient Patient admitted to: Observation With expected LOS: <2 Midnights Patient will require the following post-hospital care: None Practitioner: I am a practitioner with admitting privileges, knowledge of patient current condition, hospital course, and medical plan of care. Services: Services provided to patient in accordance with Admission requirements found in Title 42 Section 412.3 of the Code of Federal Regulations Patient History Date of Service: 04/10/20 Primary Care Provider: Katerina Reason for admission: Right lower extremity cellulitis History of Present Illness: 40-year-old female with medical history of eczema and ADHD presents emergency department with redness and swelling to the right lower extremity. Patient reports that she has this yesterday. Patient also reports that she had a fall 2 days ago onto the right leg and knee. Swelling is present to bilateral lower extremities was patient states is something that comes and goes for her. Patient reports that she has had 2 prior episodes of lower extremity cellulitis which required hospitalization , 1 with sepsis. Patient noticed that she was febrile last night. During her evaluation in the emergency department patient was found to have an elevated white blood cell count at 14, a normal lactate. Patient was tachycardic in the 120 is within normal blood pressure. When I saw the patient in the emergency department she was awake, alert, oriented x3. Patient is in no distress at this time. Patient with moderate cellulitis to the right lower extremity. Patient will be admitted for further evaluation and management. Allergies codeine Allergy (Verified 11/13/18 16:16) Hives/Rash shrimp Allergy (Verified 11/15/18 13:47) Anaphylaxis Home Medications: Fluticasone/Salmeterol [Advair 250-50 Diskus] 1 each IH Q12H #30 blst.w.dev 11/18/18 Sulfamethoxazole/Trimethoprim [Bactrim Ds Tablet] 1 each PO BID #10 tablet 11/18/18 - Past Medical/Surgical History Has patient received pneumonia vaccine in the past: No Diabetic: No -: Cellulitis -: Eczema -: ADHD -: Hysterectomy -: x2 Psychosocial/ Personal History: Patient lives at home with her . - Family History Family History: Reviewed- Non-Contributory - Social History Smoking Status: Never smoker Alcohol use: Yes CD- Drugs: No Caffeine use: Yes Place of Residence: Home Review of Systems General: Fever, Chills Eyes: Unremarkable ENT: Unremarkable Respiratory: Unremarkable Cardiovascular: Unremarkable Gastrointestinal: Unremarkable Genitourinary: Unremarkable Musculoskeletal: Other (Swelling and pain to right lower extremity) Integumentary: As per HPI Neurological: Unremarkable Lymphatics: Unremarkable Physical Examination - Physical Exam General: Alert, In no apparent distress, Oriented x3 HEENT: Atraumatic, Normocephalic Neck: Supple Respiratory: Clear to auscultation bilaterally, Normal air movement Cardiovascular: Normal pulses, Normal S1 S2 Capillary refill: <2 Seconds Gastrointestinal: Normal bowel sounds, Soft and benign Musculoskeletal: Swelling, Erythema, Tenderness (To right lower extremity), Warmth Integumentary: Erythema, Warmth (Right lower extremity) Neurological: Normal speech, Normal tone, Sensation intact Lymphatics: No axilla or inguinal lymphadenopathy - Studies Laboratory Data (last 24 hrs) 04/10/20 10:15: PT 13.4 H, INR 1.14, APTT 30.4 04/10/20 10:15: WBC 14.3 H, Hgb 12.7, Hct 38.3, Plt Count 337 04/10/20 10:15: Sodium 136, Potassium 3.7, BUN 8, Creatinine 0.78, Glucose 107 H, Total Bilirubin 1.0, AST 11 L, ALT 20, Alkaline Phosphatase 84, Amylase 26, Lipase 65 L Assessment and Plan - Plan Assessment Cellulitis of the right lower extremity Eczema ADHD Plan Cellulitis of the right lower extremity: Continue with IV antibiotics. Will obtain ultrasound of the right lower extremity to rule out DVT. DVT prophylaxis with Lovenox 40 mg subcutaneous daily. Will follow up on blood cultures that were collected in the emergency department. Anticipate clinical improvement in the next 24-48 hr at which time the patient can be discharged home. Eczema: Will obtain and continue patient's home medications. ADHD:Will obtain and continue patient's home medications. Discharge Plan: Home Plan to discharge in: 48 Hours - Advance Directives Does patient have a Living Will: No Does patient have a Durable POA for Healthcare: No - Code Status/Comfort Care Code Status Assessed: Yes (Patient is full code) Critical Care: No Time Spent Managing Pts Care (In Minutes): 55
[2020-04-10] MEDS ORDERED: ONDANSETRON 4 MG/2 ML VIAL IV PRN (16:00)
[2020-04-10] MEDS ORDERED: TRAMADOL HCL 50 MG TAB PO PRN (16:00)
[2020-04-10] MEDS ORDERED: HYDROCODONE/APAP 7.5/325 MG TAB PO PRN (16:00)
[2020-04-10 16:09] VITALS: BMI 42.2
[2020-04-10] MEDS ORDERED: VANCOMYCIN 750 MG in NA CHLORIDE 0.9% 150 ML IVPB SCH (17:00)
[2020-04-10] MEDS: ACETAMINOPHEN 500 MG TAB PO PRN (17:22)
[2020-04-10] MEDS: ENOXAPARIN 40 MG/0.4 ML SQ SCH (17:22)
[2020-04-10] MEDS ORDERED: POTASSIUM CL SA 10 MEQ TAB PO ONE (21:00)
[2020-04-11] MEDS: ACETAMINOPHEN 500 MG TAB PO PRN (00:52)
[2020-04-11 05:51] LABS: Absolute Lymphocytes (CBC) 2.1 K/uL (0.7-4.9); Basophils % 0.6 % (0-1.3); Hematocrit 35.5 % (36.0-45.0); Lymphocytes % 25.6 % (15.3-44.8); MPV 7.7 fL (7.6-11.3); RBC Red Blood Cell Count 4.27 M/uL (3.86-4.86)
[2020-04-11 05:55] LABS: BUN Blood Urea Nitrogen 5 mg/dL (7-18); Bicarbonate 23 mmol/L (21-32); Glucose Level 105 mg/dL (74-106); Sodium Level 139 mmol/L (136-145)
[2020-04-11 05:59] LABS: Magnesium 2.1 mg/dL (1.8-2.4); Potassium 3.8 mmol/L (3.5-5.1)
[2020-04-11] MEDS ORDERED: POTASSIUM CL SA 10 MEQ TAB PO ONE (06:06)
--- NOTE | 2020-04-11 09:06 | RAD REPORT ---
EXAM DESCRIPTION: USExtremdominique Venous Uni Ltd04/11/2020 8:50 am CLINICAL HISTORY: Right leg pain swelling. COMPARISON: None. FINDINGS: Right common femoral, superficial femoral, popliteal and right posterior tibial veins are compressible and demonstrate augmentation. Doppler demonstrates good flow. IMPRESSION: No evidence of deep venous thrombosis involving the right lower extremity.
[2020-04-11] MEDS: ENOXAPARIN 40 MG/0.4 ML SQ SCH (09:35)
[2020-04-11 09:47] VITALS: O2SAT 98
--- NOTE | 2020-04-11 09:56 | EKG ---
Test Date: 2020-04-10 Test Time: 10:30:08 Screw Machine Set Up Operator Tool: BRENT MEASUREMENT RESULTS: Intervals: Rate: 121 VT: 146 QRSD: 72 QT: 298 QTc: 423 [place]: P: 56 VT: 146 QRS: 58 T: 59 INTERPRETIVE STATEMENTS: Sinus tachycardia Otherwise normal ECG Compared to ECG 11/13/2018 13:19:02 Myocardial infarct finding no longer present Electronically Signed On 04-11-20 09:54:08 CDT by Panda Cardenas
[2020-04-11] MEDS ORDERED: Levofloxacin500mg IV 500 MG/100 ML BAG IV SCH (10:00)
[2020-04-11] MEDS ORDERED: VANCOMYCIN 1.75 GM in NA CHLORIDE 0.9% 500 ML IVPB SCH (11:00)
--- NOTE | 2020-04-11 11:46 | P.DS ---
Admission Date: 04/10/20 Discharge Date: 04/11/20 Primary Care Provider: Katerina Disposition: ROUTINE DISCHARGE Discharge Condition: GOOD Reason for Admission: Right lower extremity cellulitis Consultations: none Procedures: Ultrasound right lower extremity FINDINGS: Right common femoral, superficial femoral, popliteal and right posterior tibial veins are compressible and demonstrate augmentation. Doppler demonstrates good flow. IMPRESSION: No evidence of deep venous thrombosis involving the right lower extremity. X-ray of the right foot FINDINGS: Limited two view series No fracture or dislocation seen. No bony destructive lesion noted. Diffuse edema within the soft tissue X-ray of the right knee FINDINGS: No fracture or dislocation is seen. No bony destructive lesion. Diffuse edema within the soft tissues Medical problem list Cellulitis of the right lower extremity Attention deficit hyperactivity disorder Brief History of Present Illness: 40-year-old female with medical history of eczema and ADHD presents emergency department with redness and swelling to the right lower extremity. Patient reports that she has this yesterday. Patient also reports that she had a fall 2 days ago onto the right leg and knee. Swelling is present to bilateral lower extremities was patient states is something that comes and goes for her. Patient reports that she has had 2 prior episodes of lower extremity cellulitis which required hospitalization , 1 with sepsis. Patient noticed that she was febrile the night prior to her admission Hospital Course: 40-year-old female was admitted for right lower extremity cellulitis. Patient had x-rays of her right knee and right foot both of which were negative. Patient also had ultrasound of the right lower extremity to rule out DVT, no DVT was found. Initially patient's white blood cell count was 14 and patient was febrile and tachycardic. Patient received IV antibiotics during her admission including Levaquin and vancomycin. Patient's white blood cell count has greatly improved to 8. Patient also has improved, patient is afebrile in no longer tachycardic at this time, patient states she is feeling much better at this time. The area of cellulitis has improved as well. Patient will be discharged with oral antibiotics including Augmentin 875 twice daily for 10 days and doxycycline 100 mg twice daily for 10 days. Patient also said with a prescription for Bactroban to apply topically to bilateral nares, umbilicus, affected area twice daily for 10 days. Recommend compression stockings for patient after cellulitis cleared. Patient may benefit from dermatology consult on an outpatient basis for further management of patient's chronic eczema. Patient will follow up with primary care doctor in 1-2 weeks to monitor improvement of cellulitis. Patient started to return to hospital if the infection worsens. Patient may continue Adderall 1 mg daily as needed for her ADHD. Vital Signs/Physical Exam: Temp Pulse Resp BP Pulse Ox 98.4 F 95 H 18 99/61 98 04/11/20 08:00 04/11/20 08:00 04/11/20 08:00 04/11/20 08:00 04/11/20 08:00 General: Alert, In no apparent distress, Oriented x3 HEENT: Atraumatic, Normocephalic Neck: Supple Respiratory: Clear to auscultation bilaterally, Normal air movement Cardiovascular: Normal S1 S2 Capillary refill: <2 Seconds Gastrointestinal: Normal bowel sounds, Soft and benign Musculoskeletal: No clubbing, Swelling, Erythema (Mild erythema, swelling, warmth that has improved to the right lower extremity.), Warmth Integumentary: Tenderness/swelling (Mild, to the right lower extremity.), Erythema, Warmth Neurological: Normal gait, Normal speech Lymphatics: No axilla or inguinal lymphadenopathy Laboratory Data at Discharge: WBC 8.2 K/uL (4.3-10.9) D 04/11/20 05:17 Hgb 12.0 g/dL (12.0-15.0) 04/11/20 05:17 Hct 35.5 % (36.0-45.0) L 04/11/20 05:17 Plt Count 297 K/uL (152-406) 04/11/20 05:17 PT 13.4 SECONDS (9.5-12.5) H 04/10/20 10:15 INR 1.14 04/10/20 10:15 APTT 30.4 SECONDS (24.3-36.9) 04/10/20 10:15 Sodium 139 mmol/L (136-145) 04/11/20 05:17 Potassium 3.8 mmol/L (3.5-5.1) 04/11/20 05:17 BUN 5 mg/dL (7-18) L 04/11/20 05:17 Creatinine 0.62 mg/dL (0.55-1.3) 04/11/20 05:17 Glucose 105 mg/dL (74-106) 04/11/20 05:17 Magnesium 2.1 mg/dL (1.8-2.4) 04/11/20 05:17 Total Bilirubin 1.0 mg/dL (0.2-1.0) 04/10/20 10:15 AST 11 U/L (15-37) L 04/10/20 10:15 ALT 20 U/L (12-78) 04/10/20 10:15 Alkaline Phosphatase 84 U/L (45-117) 04/10/20 10:15 Amylase 26 U/L (25-115) 04/10/20 10:15 Lipase 65 U/L (73-393) L 04/10/20 10:15 Home Medications: Aderall 30 mg PO DAILYPRN PRN 04/10/20 Amox/Clavulanate [Augmentin 875-125 Tab] 1 each PO BID 10 Days #20 tab 04/11/20 Doxycycline Monohydrate 100 mg PO BID 10 Days #20 capsule 04/11/20 Mupirocin Oint [Bactroban 2% Ointment] 8 appl TOP BID 10 Days #1 tube 04/11/20 New Medications: Amox/Clavulanate [Augmentin 875-125 Tab] 1 each PO BID 10 Days #20 tab Mupirocin Oint [Bactroban 2% Ointment] 8 appl TOP BID 10 Days #1 tube Doxycycline Monohydrate 100 mg PO BID 10 Days #20 capsule Patient Discharge Instructions: 1. Please follow up with the primary care doctor the next 1-2 weeks to follow up this hospitalization. 2. 40-year-old female was admitted for right lower extremity cellulitis. Patient had x-rays of her right knee and right foot both of which were negative. Patient also had ultrasound of the right lower extremity to rule out DVT, no DVT was found. Initially patient's white blood cell count was 14 and patient was febrile and tachycardic. Patient received IV antibiotics during her admission including Levaquin and vancomycin. Patient's white blood cell count has greatly improved to 8. Patient also has improved, patient is afebrile in no longer tachycardic at this time, patient states she is feeling much better at this time. The area of cellulitis has improved as well. Patient will be discharged with oral antibiotics including Augmentin 875 twice daily for 10 days and doxycycline 100 mg twice daily for 10 days. Patient also said with a prescription for Bactroban to apply topically to bilateral nares, umbilicus, affected area twice daily for 10 days. Recommend compression stockings for patient after cellulitis cleared. Patient may benefit from dermatology consult on an outpatient basis for further management of patient's chronic eczema. Patient will follow up with primary care doctor in 1-2 weeks to monitor improvement of cellulitis. Patient started to return to hospital if the infection worsens. Patient may continue Adderall 1 mg daily as needed for her ADHD. Diet: Regular Activity: Ad rayo Time spent managing pt's care (in minutes): 55
[2020-04-11 13:05] VITALS: BP 108/60; TEMP 98.7
== END 2020-04-11 13:15 | disposition home or self-care (01) ==
LOC: ER 09:38 → ERHOLD 13:10 → 4TH 14:16
PROVIDERS: ADMIT Family Medicine; ATTEND Family Medicine
DX: L03.115 Cellulitis of right lower limb (principal); L30.9 Dermatitis, unspecified; F90.9 Attention-deficit hyperactivity disorder, unspecified type; Z79.899 Other long term (current) drug therapy; R00.0 Tachycardia, unspecified; Z11.59 Encounter for screening for other viral diseases
CPT/HCPCS: 36415; 80048; 80076; 81003; 81015; 82150; 82550; 82553; 82947; 83605; 83690; 83735; 84145; 84484; 85025; 85610; 85730; 87040; 87077; 87086; 87088; 87186; 87205; 93005; 93971; 99285; G0378; J1650; J3370; J7030; J7040; U0002

== ENCOUNTER 2020-10-16 09:33 | Inpatient (IN) | payer BC ==
[2020-10-16] MEDS ORDERED: VANCOMYCIN/NS 1 gm 1 GM/250 ML BAG IV ONE (10:00)
[2020-10-16 11:00] LABS: Protime INR 1.5
[2020-10-16 11:01] LABS: Absolute Lymphocytes (CBC) 0.9 K/uL (0.7-4.9); Basophils % 0.1 % (0-1.3); Hematocrit 40.2 % (36.0-45.0); Lymphocytes % 5.2 % (15.3-44.8); MPV 7.9 fL (7.6-11.3)
--- NOTE | 2020-10-16 12:17 | RAD REPORT ---
EXAM DESCRIPTION: US - Extremity Venous [facility] - 10/16/2020 10:15 am CLINICAL HISTORY: Pain;Swelling COMPARISON: None. TECHNIQUE: Real-time sonographic evaluation of the right lower extremity deep venous systems was per formed. FINDINGS: Normal compressibility, flow augmentation, phasic flow and spontaneous flow are identified in the right lower extremity common femoral, superficial femoral, popliteal and posterior tibial vei ns. No intraluminal filling defects seen. A small 10-12 mm avascular hypoechoic to anechoic mass in the right popliteal fossa is most likely a small Benton cyst. No cyst rupture or hemorrhage findings. IMPRESSION: No DVT in the right lower extremity. 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
[2020-10-16 12:24] LABS: ALT/SGPT 28 U/L (12-78); Albumin 3.1 g/dL (3.4-5.0); Alkaline Phosphatase 68 U/L (45-117); Amylase 22 U/L (25-115); BUN Blood Urea Nitrogen 8 mg/dL (7-18); Bicarbonate 23 mmol/L (21-32); Bilirubin Direct 0.3 mg/dL (0-0.2); Bilirubin Total 1.3 mg/dL (0.2-1.0); CKMB Creatine Kinase MB < 1.0 ng/mL (0.3-3.6); Creatine Phosphokinase 192 U/L (26-192); Glucose Level 109 mg/dL (74-106); Lipase 58 U/L (73-393); Protein, Total 7.2 g/dL (6.4-8.2); Sodium Level 136 mmol/L (136-145); Troponin (Emerg Dept Use Only) < 0.02 ng/mL (0.0-0.045)
[2020-10-16 12:25] LABS: AST/SGOT 27 U/L (15-37); Blood Morphology Comment NOT SEEN (NOT SEEN); Platelet Estimate ADEQ; Potassium 3.4 mmol/L (3.5-5.1)
--- NOTE | 2020-10-16 13:11 | ER ---
Nurse's Notes [facility] Name: Blossom Diamond Age: 40 yrs Sex: Female : 1980 Arrival Date: 10/16/2020 Time: 09:34 Bed 30 Private MD: Diagnosis: Cellulitis of right lower limb;Elevated white blood cell count Presentation: 10/16 09:40 Chief complaint: Right lower leg and ankle swelling, redness, and pain x 2 days. Hx of hb cellulitis in same area. Coronavirus screen: At this time, the client does not indicate any symptoms associated with coronavirus-19. Ebola Screen: No symptoms or risks identified at this time. Initial Sepsis Screen: Does the patient meet any 2 criteria? HR > 90 bpm. No. Patient's initial sepsis screen is negative. Does the patient have a suspected source of infection? No. Patient's initial sepsis screen is negative. Risk Assessment: Do you want to hurt yourself or someone else? Patient reports no desire to harm self or others. Onset of symptoms was October 15, 2020. 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 - Social history:: Smoking status: Patient denies any tobacco usage or history of. Screenin:20 Abuse screen: Denies threats or abuse. Denies injuries from another. Nutritional sv screening: No deficits noted. Tuberculosis screening: No symptoms or risk factors identified. Fall Risk None identified. Assessment: 10:20 General: Appears in no apparent distress. uncomfortable, well groomed, well developed, sv Behavior is calm, cooperative, appropriate for age. Pain: Complains of pain in right leg Pain currently is 5 out of 10 on a pain scale. Pain began 2-3 days ago. Is continuous. Neuro: Level of Consciousness is awake, alert, obeys commands, Oriented to person, place, time, situation, Moves all extremities. Full function Speech is normal. Cardiovascular: Patient's skin is warm and dry. Rhythm is sinus tachycardia. Respiratory: Airway is patent Respiratory effort is even, unlabored, Respiratory pattern is regular, symmetrical. Derm: Skin is intact, Skin is pink, warm \T\ dry. Redness noted to RLE. Musculoskeletal: Range of motion: intact in all extremities, Swelling present in right leg. 11:19 Reassessment: Patient appears in no apparent distress at this time. No changes from sv previously documented assessment. Patient and/or family updated on plan of care and expected duration. Pain level reassessed. Patient is alert, oriented x 3, equal unlabored respirations, skin warm/dry/pink. 12:38 Reassessment: Patient appears in no apparent distress at this time. No changes from sv previously documented assessment. Patient and/or family updated on plan of care and expected duration. Pain level reassessed. 13:34 Reassessment: Patient appears in no apparent distress at this time. No changes from sv previously documented assessment. Patient and/or family updated on plan of care and expected duration. Pain level reassessed. Patient is alert, oriented x 3, equal unlabored respirations, skin warm/dry/pink. 14:40 Reassessment: Patient appears in no apparent distress at this time. No changes from sv previously documented assessment. Patient and/or family updated on plan of care and expected duration. Pain level reassessed. Patient is alert, oriented x 3, equal unlabored respirations, skin warm/dry/pink. 15:30 Reassessment: Patient appears in no apparent distress at this time. No changes from sv previously documented assessment. Patient and/or family updated on plan of care and expected duration. Pain level reassessed. Patient is alert, oriented x 3, equal unlabored respirations, skin warm/dry/pink. 16:27 Reassessment: Patient appears in no apparent distress at this time. No changes from sv previously documented assessment. Patient and/or family updated on plan of care and expected duration. Pain level reassessed. Patient is alert, oriented x 3, equal unlabored respirations, skin warm/dry/pink. Vital Signs: 09:40 BP 106 / 76; Pulse 118; Resp 16; Temp 99(TE); Pulse Ox 100% on R/A; Pain 5/10; hb 11:00 BP 102 / 79; Pulse 100 MON; Resp 25; Pulse Ox 98% on R/A; sv 11:45 BP 114 / 75; Pulse 105 MON; Resp 19; Pulse Ox 97% on R/A; sv 12:30 BP 115 / 84; Pulse 106 MON; Resp 20; Pulse Ox 100% on R/A; sv 14:30 BP 104 / 79; Pulse 117; Resp 20; Pulse Ox 98% on R/A; sv 15:30 BP 108 / 84; Pulse 106; Resp 26; Pulse Ox 97% on R/A; sv 16:15 BP 97 / 56; Pulse 111 MON; Resp 19; Pulse Ox 98% on R/A; sv 11:00 Sinus tachycardia sv 11:45 Sinus tachycardia sv 12:30 Sinus tachycardia sv 16:15 Sinus tachycardia sv ED Course: 09:34 Patient arrived in ED. ds1 09:40 Anisha Johnson FNP-C [facility]. kb 09:40 Corey Toledo MD is Attending Physician. kb 09:42 Triage completed. hb 09:42 Arm band placed on. hb 09:50 Shelley Rodgers, RN is Primary Nurse. sv 10:15 US Extremity Venous Unilateral Ltd In Process Unspecified. EDMS 10:20 Patient has correct armband on for positive identification. Placed in gown. Bed in low sv position. Call light in reach. bus monitor on. Pulse ox on. NIBP on. Door closed. Warm blanket given. Head of bed elevated. 10:20 First set of blood cultures drawn by me. Inserted saline lock: 22 gauge in right hand, sv using aseptic technique. Blood collected. Flushed right hand with 5 ml normal saline. 10:30 Second set of blood cultures drawn by me, 23G needle used, site covered with 2x2 gauze sv and tape. 10:38 EKG done, by ED staff, reviewed by Anisha CARLOS. sv 10:48 Troponin (emerg Dept Use Only) Sent. sv 10:48 Ptt, Activated Sent. sv 10:48 Protime (+inr) Sent. sv 10:48 Procalcitonin Sent. sv 10:48 Lipase Sent. sv 10:48 LFT's Sent. sv 10:48 Lactate Sent. sv 10:48 CPK Sent. sv 10:48 Ckmb Sent. sv 10:49 CBC with Diff Sent. sv 10:49 Blood Culture Adult (2) Sent. sv 10:49 Basic Metabolic Panel Sent. sv 10:55 Awaiting lab results, Awaiting radiology results. sv 11:15 Lab(s) recollected, by me, sent to lab. lactate. sv 13:10 Melvin Stewart DO is Hospitalizing Provider. kb 16:20 COVID swab sent to lab. sv 18:10 CORONAVIRUS Sent. sv 19:10 Primary Nurse role handed off by Shelley Rodgers RN mw2 Administered Medications: 10:46 Drug: vancoMYCIN 1 grams Route: IVPB; Infused Over: 2 hrs; Site: right hand; sv 12:38 Follow up: Response: No adverse reaction; IV Status: Completed infusion; IV Intake: sv 250ml 13:34 Drug: LevaQUIN 500 mg Volume: 100 ml; Route: IVPB; Infused Over: 60 mins; Site: right sv hand; 14:40 Follow up: Response: No adverse reaction; IV Status: Completed infusion; IV Intake: sv 100ml 15:00 Drug: NS 0.9% 1000 ml Route: IV; Rate: 1000 ml; Site: right hand; sv Intake: 12:38 IV: 250ml; Total: 250ml. sv 14:40 IV: 100ml; Total: 350ml. sv Outcome: 13:10 Decision to Hospitalize by Provider. kb 12/ 01:48 Patient left the ED. mw2 Signatures: Dispatcher [employer] EDMS Anisha Johnson, FIRE HYDRANT OPERATOR-C FIRE HYDRANT OPERATOR-Ckb Shelley Rodgers, RN LAST Cristina Bishop ds1 Keyona Camp RN RN Peri Reid mw2
--- NOTE | 2020-10-16 13:11 | EDPHYS ---
Physician Documentation [facility] Name: Blossom Diamond Age: 40 yrs Sex: Female : 1980 Arrival Date: 10/16/2020 Time: 09:34 Bed 30 Private MD: ED Physician Corey Toledo HPI: 10/16 10:26 This 40 yrs old Female presents to ER via Wheelchair with complaints of R Leg kb Pain, Fever. 10:27 The patient presents with cellulitis of the right leg. Description: erythematous, hot, kb swollen. Onset: The symptoms/episode began/occurred yesterday. Possible cause(s): unknown. Associated signs and symptoms: Pertinent positives: erythema, swelling, Pertinent negatives: discharge, drainage, foreign body sensation, fever, headache, nausea, shortness of breath, vomiting. Modifying factors: the symptoms are alleviated by nothing, the symptoms are aggravated by nothing. Severity of symptoms: At their worst the symptoms were moderate, in the emergency department the symptoms are unchanged. The patient has experienced similar episodes in the past, several times. The patient has not recently seen a physician. 10:39 Pt states this is the 4th time to have lower extremity cellulitis. States she has had kb to be admitted every time. Reports this episode started yesterday, fever max of 102. States she would rather not stay in the hospital if it can be avoided. She has never tried oral antibiotics in the past. 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 - Social history:: Smoking status: Patient denies any tobacco usage or history of. ROS: 10:23 Cardiovascular: Negative for chest pain, palpitations, and edema, Respiratory: Negative kb for shortness of breath, cough, wheezing, and pleuritic chest pain, Abdomen/GI: Negative for abdominal pain, nausea, vomiting, diarrhea, and constipation, Back: Negative for injury and pain, Neuro: Negative for headache, weakness, numbness, tingling, and seizure. 10:23 Skin: Positive for cellulitis, of the right leg. Exam: 10:23 Constitutional: This is a well developed, well nourished patient who is awake, alert, kb and in no acute distress. Head/Face: Normocephalic, atraumatic. Chest/axilla: Normal chest wall appearance and motion. Nontender with no deformity. No lesions are appreciated. Cardiovascular: Regular rate and rhythm with a normal S1 and S2. No gallops, murmurs, or rubs. Normal PMI, no JVD. No pulse deficits. Respiratory: Lungs have equal breath sounds bilaterally, clear to auscultation and percussion. No rales, rhonchi or wheezes noted. No increased work of breathing, no retractions or nasal flaring. Abdomen/GI: Soft, non-tender, with normal bowel sounds. No distension or tympany. No guarding or rebound. No evidence of tenderness throughout. MS/ Extremity: Pulses equal, no cyanosis. Neurovascular intact. Full, normal range of motion. Neuro: Awake and alert, GCS 15, oriented to person, place, time, and situation. Cranial nerves II-XII grossly intact. Motor strength 5/5 in all extremities. Sensory grossly intact. Cerebellar exam normal. Normal gait. 10:23 Skin: cellulitis, that is moderate, on the right leg. 11:45 ECG was reviewed by the Attending Physician. kb Vital Signs: 09:40 BP 106 / 76; Pulse 118; Resp 16; Temp 99(TE); Pulse Ox 100% on R/A; Pain 5/10; hb 11:00 BP 102 / 79; Pulse 100 MON; Resp 25; Pulse Ox 98% on R/A; sv 11:45 BP 114 / 75; Pulse 105 MON; Resp 19; Pulse Ox 97% on R/A; sv 12:30 BP 115 / 84; Pulse 106 MON; Resp 20; Pulse Ox 100% on R/A; sv 14:30 BP 104 / 79; Pulse 117; Resp 20; Pulse Ox 98% on R/A; sv 15:30 BP 108 / 84; Pulse 106; Resp 26; Pulse Ox 97% on R/A; sv 16:15 BP 97 / 56; Pulse 111 MON; Resp 19; Pulse Ox 98% on R/A; sv 11:00 Sinus tachycardia sv 11:45 Sinus tachycardia sv 12:30 Sinus tachycardia sv 16:15 Sinus tachycardia sv MDM: 09:44 Patient medically screened. kb 10:23 Data reviewed: vital signs, nurses notes. Data interpreted: Pulse oximetry: on room air kb is 100 %. Interpretation: normal. 13:02 Counseling: I had a detailed discussion with the patient and/or guardian regarding: the kb historical points, exam findings, and any diagnostic results supporting the discharge/admit diagnosis, lab results, radiology results, the need for further work-up and treatment in the hospital. 13:09 Physician consultation: Melvin Stewart DO was contacted at 13:09, regarding admission, kb to the medical/surgical unit. and will see patient in ED, shortly. 10/16 09:44 Order name: Amylase, Serum; Complete Time: 12:26 kb 10/16 09:44 Order name: Basic Metabolic Panel kb 10/16 09:44 Order name: Blood Culture Adult (2) kb 10/16 09:44 Order name: CBC with Diff kb 10/16 09:44 Order name: Ckmb kb 10/16 09:44 Order name: CPK kb 10/16 09:44 Order name: Lactate kb 10/16 09:44 Order name: LFT's kb 10/16 09:44 Order name: Lipase kb 10/16 09:44 Order name: Procalcitonin kb 10/16 09:44 Order name: Protime (+inr) kb 10/16 09:44 Order name: Ptt, Activated kb 10/16 09:44 Order name: Troponin (emerg Dept Use Only) kb 10/16 11:17 Order name: CBC with Automated Diff; Complete Time: 12:26 EDMS 10/16 09:44 Order name: Cardiac monitoring; Complete Time: 10:47 kb 10/16 09:44 Order name: EKG - Nurse/Tech; Complete Time: 10:47 kb 10/16 09:44 Order name: IV Saline Lock - Large Bore; Complete Time: 10:47 kb 10/16 09:45 Order name: US Extremity Venous Unilateral Ltd; Complete Time: 12:20 kb 10/16 11:58 Order name: Lactate; Complete Time: 11:59 EDMS 10/16 12:03 Order name: Protime (+INR); Complete Time: 12:04 EDMS 10/16 12:03 Order name: PTT, Activated Partial Thromb; Complete Time: 12:04 EDMS 12/09 12:23 Order name: Procalcitonin; Complete Time: 12:26 EDMS 10/16 12:26 Order name: Basic Metabolic Panel; Complete Time: 12:26 EDMS 10/16 16:52 Order name: Lactate; Complete Time: 17:09 EDMS 10/16 17:32 Order name: CORONAVIRUS EDMS 10/16 19:09 Order name: SARS-COV-2 RT PCR; Complete Time: 19:15 EDMS 10/16 09:44 Order name: Labs collected and sent; Complete Time: 10:48 kb 10/16 09:44 Order name: O2 Per Protocol; Complete Time: 10:48 kb 10/16 09:44 Order name: O2 Sat Monitoring; Complete Time: 10:48 kb 10/16 10:56 Order name: Labs - recollect needed: recollect lactate. speciman timed out; Complete bd Time: 12:38 EC:45 Rate is 105 beats/min. Rhythm is regular. QRS Hudson is Normal. VT interval is normal at kb 146 msec. QRS interval is normal at 76 msec. QT interval is normal at 326 msec. Administered Medications: 10:46 Drug: vancoMYCIN 1 grams Route: IVPB; Infused Over: 2 hrs; Site: right hand; sv 12:38 Follow up: Response: No adverse reaction; IV Status: Completed infusion; IV Intake: sv 250ml 13:34 Drug: LevaQUIN 500 mg Volume: 100 ml; Route: IVPB; Infused Over: 60 mins; Site: right sv hand; 14:40 Follow up: Response: No adverse reaction; IV Status: Completed infusion; IV Intake: sv 100ml 15:00 Drug: NS 0.9% 1000 ml Route: IV; Rate: 1000 ml; Site: right hand; sv Disposition: 10/16/20 13:10 Hospitalization ordered by Melvin Stewart for Inpatient Admission. Preliminary diagnosis are Cellulitis of right lower limb, Elevated white blood cell count. - Bed requested for Telemetry/MedSurg (Inpatient). - Status is Inpatient Admission. mw2 - Condition is Stable. - Problem is new. - Symptoms are unchanged. Addendum: 10/29/2020 04:00 Co-signature as Attending Physician, Corey lu a2 Signatures: Dispatcher [employer] EDME Anisha Johnson, TERRANCE GUAMAN-Lissa Witt, Shelley, RN RN sv Melly Garcias RN RN tl1 Keyona Camp, Corey Chavez RN, MD MD wv2 [place], Peri mw2 Corrections: (The following items were deleted from the chart) 10/16 10:41 10:39 Pt states this is the 4th time to have lower extremity cellulitis. States she has kb had to be admitted every time. Reports this episode started yesterday, fever max of 102. . kb 12:38 09:44 Accucheck ordered. kb sv 13:10 13:10 Hospitalization Ordered by Melvin Stewart DO for Inpatient Admission. Preliminary kb diagnosis is Cellulitis of right lower limb. Bed requested for Telemetry/MedSurg (Inpatient). Status is Inpatient Admission. Condition is Stable. Problem is new. Symptoms are unchanged. kb 14:41 13:10 10/16/2020 13:10 Hospitalization Ordered by Melvin Stewart DO for Inpatient bd Admission. Preliminary diagnosis is Cellulitis of right lower limb; Elevated white blood cell count. Bed requested for Telemetry/MedSurg (Inpatient). Status is Inpatient Admission. Condition is Stable. Problem is new. Symptoms are unchanged. kb 10/17 01:45 12 14:41 10/16/2020 13:10 Hospitalization Ordered by Melvin Stewart DO for Inpatient tl1 Admission. Preliminary diagnosis is Cellulitis of right lower limb; Elevated white blood cell count. Bed requested for [facility] ER HOLD. Status is Inpatient Admission. Condition is Stable. Problem is new. Symptoms are unchanged. bd 10/17 01:48 01:45 10/16/2020 13:10 Hospitalization Ordered by Melvin Stewart DO for Inpatient mw2 Admission. Preliminary diagnosis is Cellulitis of right lower limb; Elevated white blood cell count. Bed requested for Telemetry/MedSurg (Inpatient). Status is Inpatient Admission. Condition is Stable. Problem is new. Symptoms are unchanged. tl1
[2020-10-16] MEDS ORDERED: Levofloxacin500mg IV 500 MG/100 ML BAG IV ONE (13:42)
--- NOTE | 2020-10-16 13:53 | P.HP ---
Certification for Inpatient Patient admitted to: Observation With expected LOS: <2 Midnights Patient will require the following post-hospital care: None Practitioner: I am a practitioner with admitting privileges, knowledge of patient current condition, hospital course, and medical plan of care. Services: Services provided to patient in accordance with Admission requirements found in Title 42 Section 412.3 of the Code of Federal Regulations Patient History Date of Service: 10/16/20 Primary Care Provider: Dr. White Reason for admission: Recurrent right lower extremity infection History of Present Illness: 40-year-old female presented with right lower extremity cellulitis. Patient had cellulitis back in April. She was treated in the hospital. Over the past 48 hr she had noted increased pain, swelling, erythema to the right lower extremity. She also reported fever, chills. Fever 102 last night. She denies any significant chest pain, shortness of breath. She does report some pain to the back of her knee. She came to the ER for further evaluation and treatment. In the ER patient will was evaluated. Venous Doppler shows a Benton cyst to the right popliteal area. No DVT noted. White count 18.2, hemoglobin 13. Sodium 136, potassium 3.4. BUN of 8, creatinine 0.8. Pro calcitonin elevated at 0.66. Lactic acid normal. Patient was started on IV antibiotic therapy. Patient admitted for further evaluation and treatment. When I saw the patient ER, patient appeared comfortable. Patient slightly tachycardic. Patient does not appear septic at this time. Allergies codeine Allergy (Verified 11/13/18 16:16) Hives/Rash shrimp Allergy (Verified 11/15/18 13:47) Anaphylaxis Home medications list reviewed: Yes Home Medications: Aderall 30 mg PO DAILYPRN PRN 04/10/20 Amox/Clavulanate [Augmentin 875-125 Tab] 1 each PO BID 10 Days #20 tab 04/11/20 Doxycycline Monohydrate 100 mg PO BID 10 Days #20 capsule 04/11/20 Mupirocin Oint [Bactroban 2% Ointment] 8 appl TOP BID 10 Days #1 tube 04/11/20 - Past Medical/Surgical History Diabetic: No -: Recurrent right lower extremity cellulitis -: Eczema -: ADHD -: Benton cyst right popliteal -: Hysterectomy -: x2 Psychosocial/ Personal History: Patient lives at home with her . - Family History Father -: Hypertension, Diabetes Mother -: Diabetes - Social History Smoking Status: Never smoker Alcohol use: Yes CD- Drugs: No Caffeine use: Yes Place of Residence: Home Review of Systems General: Fever, Chills, As per HPI Eyes: Unremarkable ENT: Unremarkable Respiratory: Unremarkable Cardiovascular: Unremarkable Gastrointestinal: Unremarkable Genitourinary: Unremarkable Musculoskeletal: Leg Pain, Pedal edema, As per HPI Integumentary: As per HPI Neurological: Unremarkable Lymphatics: Unremarkable Physical Examination - Physical Exam General: Alert, In no apparent distress, Oriented x3, Cooperative HEENT: Atraumatic, Normocephalic, Other (Dry mucous membranes) Neck: Supple Respiratory: Clear to auscultation bilaterally, Normal air movement Cardiovascular: Abnormal pulses (Mild sinus tachycardia) Gastrointestinal: No ascites Integumentary: Other (Mild erythema to the right lower extremity below the knee. Swelling noted compared to the left side. Warmth noted compared to the left side. No significant breakdown of skin. Some tenia pedis noted.) Neurological: Normal speech, Normal strength at 5/5 x4 extr, Normal tone, Normal affect - Studies Laboratory Data (last 24 hrs) 10/16/20 10:20: PT 17.6 H, INR 1.50, APTT 29.0 10/16/20 10:20: Total Bilirubin Cancelled, AST Cancelled, ALT Cancelled, Alkaline Phosphatase Cancelled, Lipase Cancelled 10/16/20 10:20: WBC 18.2 H, Hgb 13.6, Hct 40.2, Plt Count 263 10/16/20 10:20: Sodium 136, Potassium 3.4 L, BUN 8, Creatinine 0.80, Glucose 109 H, Total Bilirubin 1.3 H, AST 27, ALT 28, Alkaline Phosphatase 68, Amylase 22 L, Lipase 58 L Assessment and Plan - Plan Impression: Recurrent right lower extremity cellulitis with tenia pedis Benton cyst right popliteal fossa Plan: Patient will be admitted for further evaluation and treatment. Patient with mild sinus tachycardia. Will provide IV fluid bolus. Doubt sepsis at this time. ER started vancomycin. Will add Levaquin IV. Will obtain echocardiogram to further evaluate. Will treat tenia pedis. Will provide medication for pain. DVT prophylaxis in place. Will consult Infectious Disease due to recurrent cellulitis. Case discussed with infectious disease. Probable etiology is from her tenia pedis. Patient also has small popliteal Benton cyst. Pharmacy to monitor and adjust. Will continue to monitor electrolytes. Continue IV fluids. Recheck lactic acid later. Anticipate improvement over the next 48 hr. Discharge Plan: Home Plan to discharge in: 48 Hours - Advance Directives Does patient have a Living Will: No Does patient have a Durable POA for Healthcare: No - Code Status/Comfort Care Code Status Assessed: Yes (Patient is full code) Time Spent Managing Pts Care (In Minutes): 55
[2020-10-16] MEDS ORDERED: Levofloxacin500mg IV 500 MG/100 ML BAG IV SCH ×2 (14:00→15:31)
[2020-10-16] MEDS ORDERED: NA CHLORIDE 0.9% 1,000 ML ONE ×2 (15:11→16:52)
[2020-10-16] MEDS ORDERED: ONDANSETRON 4 MG/2 ML VIAL IV PRN (15:31)
[2020-10-16] MEDS ORDERED: HYDROCODONE/APAP 7.5/325 MG TAB PO PRN (15:31)
[2020-10-16] MEDS ORDERED: TRAMADOL HCL 50 MG TAB PO PRN (15:31)
[2020-10-16] MEDS: NA CHLORIDE 0.9% 1,000 ML IV SCH (15:31)
--- OUTSIDE RECORDS SUMMARY | 2020-10-16 15:39 | XMS REPORT | Continuity of Care Document ---
:1980 Author Organization [facility] t Address [address] [place] [address] Care Team Providers Name Role Phone Unavailable [...] 5-07 [facility] [place] No Known DA Active U 2019-0 [facility] Allergie 4-18 [facility] Medications This patient has no known medications. Procedures This patient has no known procedures. Results Test Description Test Time Test Comments Results Result [facility] e Comments PELVIC SIDEWALL 2019-03-15 16:24:00 ----RUN DATE: 03/16/19 [facility] PAGE 1 RUN TIME: 1249 Specimen Inquiry RUN USER: INTERFACE ----PATIENT: NIESHA MONREAL [facility] #: [id number] [facility] #: [id number] AGE/SX: 39/F ROOM: [facility] RE03/14/19REG DR: Maki Pozo MD : 81 BED: A DIS: 03/15/19 STATUS: DIS Cait TLOC: ---- SPEC #: [id number] RECD: 03/14/19 STATUS: MARIN RE #: [id number] CAREY: 03/14/19- SUBM DR: Maki Pozo MD ENTERED: 03/14/19 SP TYPE: PELVIC [facility] DR: ORDERED: LEVEL IV/3 CODES: [id number] - UTERUS, NOS [id number] - OVARY, NOS [id number] - PELVIC GENITAL PROCEDURES: LEVEL IV (Incomplete) [...] 5.0 cm Tissue code 1 CPT code(s): 65560, 93401 x2 [facility] 03/15/19 GROSS DESCRIPTION ANATOMIC SOURCE OF TISSUE (per Requisition): 1. Right pelvic sidewall endometriosis 2. Uterus, cervix, right fallopian tube and left fallopian tube 3. Left ovarian cyst CONTINUED ON NEXT PAGE ----RUN DATE: 03/16/19 [facility] PAGE 2 RUN TIME: 1249 Specimen Inquiry RUN USER: INTERFACE ----SPEC #: [id number] PATIENT: NIESHA MONREAL [place] #[id number] (Continued) GROSS DESCRIPTION (Continued) Each specimen is [...] posterior endomyometrium, B4 - nodule, B5 - field sales representative sections of right fallopian tube, B6 - field sales representative sections of left fallopian tube. [...] the wall are stein, firm and thickened. Gum Sprayer sections are submitted as C1 - C3. lonnie/hai 03/14/19 @ 1710 -------- Signed Beatris Hartley MD 03/15/19 1624 ---- END OF REPORT HGB HCT 2019-03-15 05:49:00 Test Item Value Reference Range Interpretation Comme nts HEMOGLOBIN (test code = HGB) 10.4 g/dL 10.7-13.9 L HEMATOCRIT (test code = HCT) 33.9 % 32.1-42.1 N UR HCG [id number] 09:58:00 Test Item Value Reference Range Interpretation [...] hours later and tested. AG HEPATITIS B [id number] 14:43:00 Test Item Value Reference Range Interpretation Comments AG HEPATITIS B SURFACE (test code NONREACTIVE NONREACTIVE = HBSAG) IS CONSENT FORM SIGNED FOR HIV TESTING? YAB HEPATITIS C [id number] 14:43:00 Test Item Value Reference Range Interpretation Comments AB HEPATITIS C (test code = NONREACTIVE NONREACTIVE HCVAB) SIGNAL TO CUTOFF (test code = 0.05 <0.80 N CUTOFF) IS CONSENT FORM SIGNED FOR HIV TESTING? YAB HIV 1 14:43:00 Test Item Value Reference Range Interpretation Comments AB HIV 1 2 (test NONREACTIVE NONREACTIVE [facility] by [facility] code = OQP41RU) 4th Gen HIV Ag/Ab Combo Screen IS CONSENT FORM SIGNED FOR HIV TESTING? YURINALYSIS [id number] 14:35:00 Test Item Value Reference Range Interpretation [...] = AMORU) URINE SAMPLE: CLEAN CATCHHCG SERUM [id number] 13:52:00 Test Item Value Reference Range Interpretation Comments HCG SERUM QUAL (test code = HCGQL) NEGATIVE CBC W/AUTO [id number] 13:24:00 Test Item Value Reference Range Interpretation [...]
[2020-10-16] MEDS: ENOXAPARIN 40 MG/0.4 ML SQ SCH (16:47)
[2020-10-16] MEDS ORDERED: ENOXAPARIN 40 MG/0.4 ML SQ ONE (16:52)
[2020-10-16 16:53] VITALS: BMI 32.7
[2020-10-16] MEDS ORDERED: INFLUENZA VACCINE (for 3y+) 0.5 ML DOSE IMVAC ONE (18:00)
--- NOTE | 2020-10-16 18:46 | CON ---
History Of Present Illness: Blossom Diamond is a 40-year-old female coming in with right lower ext remity cellulitis. Patient also had fever of 102 and leukocytosis on admission. Patient has lost ab out 50 pounds in the last 6 months as she has been working out on a regular basis. This is her fourt h time that she is having cellulitis in the legs. Last time she had cellulitis on the left side. De nies any headache, nausea, vomiting, chest pain, abdominal pain, constipation, or diarrhea. Past Medical History: Cellulitis of lower extremity, fungal dermatitis, eczema, Benton cyst in right popliteal, hysterectomy, , ADHD, family history of hypertension, diabetes mellitus. Social History: Nonsmoker, nondrinker. Family History: Noncontributory. Medications: Vancomycin and Levaquin. Allergies: CODEINE AND SHRIMP. Review of Systems: A 10-point review was performed. Physical Examination: General: This is a 40-year-old female, lying in bed, not in any acute cardiopulmonary distress. Vital Signs: Temperature 98, pulse 78, respirations 16. HEENT: Unremarkable. Neck: Supple. Lungs: Clear to auscultation. Heart: S1, S2. Regular. Abdomen: Soft. Bowel sounds present. Obese. Extremity: 2+ edema with erythematous changes noted in the right lower extremity. Increased warmth also noted. Patient also has dry cracking skin between the toes. Laboratory Data: Shows WBC 53962, hemoglobin 13.6, platelets are 263. Chemistry shows sodium 136, p otassium 3.4, chloride 104, bicarb 23, BUN 8, creatinine 0.8, glucose 109, bilirubin is 1.3, albumin is 3.1. Procalcitonin is 0.66. Assessment And Plan: This is a 40-year-old female coming in with right lower extremity cellulitis, t enia pedis also noted with increased warmth and swelling. Patient also has leukocytosis and fever of 102 yesterday. I agree with antibiotic therapy. Total course should be 10-14 days depending on pat ient response. Keep leg elevated when possible. Also recommend to use antifungal cream or spray to the foot like Tinactin to prevent fungal dermatitis, which is most likely possible reason for her to develop cellulitis this time. Morbid obesity, which recommend to continue losing weight and nutritio nal support. We will follow the patient as needed. Thank you Dr. Stewart for consult. SAM/HARLEY Voice ID: [id number] Report ID: [id number]
[2020-10-16] MEDS: KETOCONAZOLE CREAM 15 GM TUBE TOP SCH (21:00)
[2020-10-16] MEDS: ACETAMINOPHEN 500 MG TAB PO PRN (22:57)
[2020-10-17 04:10] LABS: Absolute Lymphocytes (CBC) 1.3 K/uL (0.7-4.9); Basophils % 0.6 % (0-1.3); Hematocrit 34.3 % (36.0-45.0); Lymphocytes % 14.8 % (15.3-44.8); MPV 7.8 fL (7.6-11.3); RBC Red Blood Cell Count 3.87 M/uL (3.86-4.86)
[2020-10-17 04:24] LABS: BUN Blood Urea Nitrogen 7 mg/dL (7-18); Bicarbonate 25 mmol/L (21-32); Glucose Level 97 mg/dL (74-106); Magnesium 2.1 mg/dL (1.8-2.4); Potassium 3.5 mmol/L (3.5-5.1); Sodium Level 140 mmol/L (136-145)
[2020-10-17] MEDS ORDERED: NA CHLORIDE 0.9% 500 ML IV ONE ×2 (04:57→06:14)
[2020-10-17] MEDS: NA CHLORIDE 0.9% 1,000 ML IV SCH ×4 (05:01→23:31)
[2020-10-17] MEDS ORDERED: NA CHLORIDE 0.9% 500 ML ONE (05:13)
[2020-10-17] MEDS: KETOCONAZOLE CREAM 15 GM TUBE TOP SCH ×2 (09:00→19:26)
--- NOTE | 2020-10-17 09:44 | P.PN ---
Subjective Date of Service: 10/17/20 Primary Care Provider: Dr. White Chief Complaint: Recurrent right lower extremity infection Subjective: Other (Blood pressure slightly low this morning. Patient given IV fluid bolus. Heart rate improved. T-max 100.4.) Physical Examination - Vital Signs Temperature: 97.8 F Blood Pressure: 117/53 Pulse: 98 Respirations: 16 Pulse Ox (%): 97 - Physical Exam General: Alert, In no apparent distress, Oriented x3, Cooperative HEENT: Atraumatic Neck: Supple Respiratory: Clear to auscultation bilaterally, Normal air movement Cardiovascular: Normal pulses, Regular rate/rhythm Gastrointestinal: Normal bowel sounds Integumentary: Other (Erythema, swelling and warmth to the right lower extremity slightly improved. Minimal pain noted. Still significant compared to the left side.) Neurological: Normal speech, Normal strength at 5/5 x4 extr, Normal tone, Normal affect - Studies Laboratory Data (last 24 hrs) 10/16/20 10:20: PT 17.6 H, INR 1.50, APTT 29.0 10/16/20 10:20: Total Bilirubin Cancelled, AST Cancelled, ALT Cancelled, Alkaline Phosphatase Cancelled, Lipase Cancelled 10/16/20 10:20: WBC 18.2 H, Hgb 13.6, Hct 40.2, Plt Count 263 10/16/20 10:20: Sodium 136, Potassium 3.4 L, BUN 8, Creatinine 0.80, Glucose 109 H, Total Bilirubin 1.3 H, AST 27, ALT 28, Alkaline Phosphatase 68, Amylase 22 L, Lipase 58 L Medications List Reviewed: Yes Assessment & Plan Discharge Plan: Home Plan to discharge in: 48 Hours Physician Review Additional Text: Impression: Recurrent right lower extremity cellulitis with tenia pedis Benton cyst right popliteal fossa Plan: Blood pressure slightly low this morning. 1000 cc fluid bolus given. Blood pressure improved. Heart rate improved. Right lower extremity cellulitis slightly improved. Patient still needs to continue with IV antibiotic therapy. No plan for discharge today. Continue DVT prophylaxis. Await blood culture results. Patient also treated for tinea pedis. Encourage ambulation. Elevate leg when sitting or lying. Continue to monitor closely. Will discuss further with Infectious Disease. Patient with Benton cyst to the right popliteal fossa. This can be further addressed in evaluated by orthopedics as an outpatient. Anticipate possible discharge within 48 hr. Time Spent Managing Pts Care (In Minutes): 55
[2020-10-17] MEDS: VANCOMYCIN 1.5 GM in NA CHLORIDE 0.9% 500 ML IVPB SCH (10:04)
--- NOTE | 2020-10-17 11:00 | EKG ---
Test Date: 2020-10-16 Test Time: 10:38:36 Turbo Operator: TATUM MEASUREMENT RESULTS: Intervals: Rate: 105 VA: 146 QRSD: 76 QT: 326 QTc: 430 [place]: P: 46 VA: 146 QRS: 43 T: 38 INTERPRETIVE STATEMENTS: Sinus tachycardia Otherwise normal ECG Compared to ECG 04/10/2020 10:30:08 No significant changes Electronically Signed On 10-17-20 10:56:39 OCULAR CARE TECHNOLOGIST by Panda Cardenas
[2020-10-17] MEDS: Levofloxacin500mg IV 500 MG/100 ML BAG IV SCH (14:08)
[2020-10-17] MEDS: ENOXAPARIN 40 MG/0.4 ML SQ SCH (17:31)
[2020-10-17] MEDS ORDERED: ACETAMINOPHEN 325 MG TABLET PO ONE (19:00)
--- NOTE | 2020-10-17 19:10 | RAD REPORT ---
EXAM DESCRIPTION: RAD - Chest Single View - 10/17/2020 7:01 pm CLINICAL HISTORY: chest pain Chest pain. COMPARISON: Chest Single View dated 11/16/2018; Chest Pa And Lat (2 Views) dated 11/15/2018 FINDINGS: Portable technique limits examination quality. The lungs are grossly clear. The heart is normal in size. No displaced fractures. IMPRESSION: No acute intrathoracic process suspected.
[2020-10-18] MEDS: VANCOMYCIN 1.5 GM in NA CHLORIDE 0.9% 500 ML IVPB SCH (02:54)
[2020-10-18] MEDS: ACETAMINOPHEN 500 MG TAB PO PRN ×2 (04:41→12:28)
[2020-10-18] MEDS ORDERED: NA CHLORIDE 0.9% 1,000 ML IV SCH (06:31)
--- NOTE | 2020-10-18 07:36 | P.PN ---
Subjective Date of Service: 10/18/20 Primary Care Provider: Dr. White Chief Complaint: Recurrent right lower extremity infection Subjective: Other (Patient reports improvement. Still some pain to the right lower extremity.) Physical Examination - Vital Signs Temperature: 98.5 F Blood Pressure: 120/70 Pulse: 119 Respirations: 18 Pulse Ox (%): 94 - Physical Exam General: Alert, In no apparent distress, Oriented x3, Cooperative HEENT: Atraumatic Neck: Supple Respiratory: Clear to auscultation bilaterally, Normal air movement Cardiovascular: Normal pulses, Regular rate/rhythm Gastrointestinal: Normal bowel sounds Integumentary: Other (Warmth improved to the right lower extremity. Erythema and swelling also improved.) Neurological: Normal speech, Normal strength at 5/5 x4 extr, Normal tone, Normal affect - Studies Laboratory Data (last 24 hrs) 10/16/20 10:20: WBC 18.2 H, Hgb 13.6, Hct 40.2, Plt Count 263 10/16/20 10:20: Sodium 136, Potassium 3.4 L, BUN 8, Creatinine 0.80, Glucose 109 H, Total Bilirubin 1.3 H, AST 27, ALT 28, Alkaline Phosphatase 68, Amylase 22 L, Lipase 58 L Medications List Reviewed: Yes Assessment & Plan Discharge Plan: Home Plan to discharge in: 24 Hours Physician Review Additional Text: Impression: Recurrent right lower extremity cellulitis with tenia pedis Benton cyst right popliteal fossa Plan: Blood pressure stable with bolus given yesterday and fluids. Will decrease IV fluids this morning. Encourage oral intake. Await echo results. Cardiology had reported unremarkable. Continue to elevate leg when sitting or lying. Improvement to the right lower extremity improved. Continue with IV antibiotic therapy. Will check pro calcitonin. Will reassess later today with possible discharge as early as today or likely tomorrow. Will discuss with infectious disease. As mentioned before patient should see orthopedics as an outpatient to address right popliteal Benton cyst. Time Spent Managing Pts Care (In Minutes): 55
--- NOTE | 2020-10-18 08:54 | ECHO ---
HEIGHT: 5 ft 2 in WEIGHT: 179 lb 0 oz DATE OF STUDY: 10/17/[address]: Melvin Stewart DO 2-DIMENSIONAL: YES M.MODE: YES DOPPLER: YES COLOR FLOW: YES TDS: NO PORTABLE: NO DEFINITY: NO BUBBLE STUDY: NO DIAGNOSIS: RECURRENT RIGHT LEG EXTREMITY CELLULITIS CARDIAC HISTORY: CATHERIZATION: NO SURGERY: NO PROSTHETIC VALVE: NO PACEMAKER: NO MEASUREMENTS (cm) DIASTOLIC (NORMALS) SYSTOLIC (NORMALS) IVSd 1.0 (0.6-1.2) LA Diam 2.8 (1.9-4.0) LVEF 63% LVIDd 4.2 (3.5-5.7) LVIDs 2.8 (2.0-3.5) %FS 34% LVPWd 1.1 (0.6-1.2) Ao Diam 2.5 (2.0-3.7) 2 DIMENSIONAL ASSESSMENT: RIGHT ATRIUM: NORMAL LEFT ATRIUM: NORMAL RIGHT VENTRICLE: NORMAL LEFT VENTRICLE: NORMAL TRICUSPID VALVE: NORMAL MITRAL VALVE: NORMAL PULMONIC VALVE: NORMAL AORTIC VALVE: NORMAL PERICARDIAL EFFUSION: NONE AORTIC ROOT: NORMAL LEFT VENTRICULAR WALL MOTION: NORMAL DOPPLER/COLOR FLOW: NORMAL COMMENTS: NORMAL LEFT VENTRICULAR LEFT VENTRICULAR EJECTION FRACTION 55-60% WITH NORMAL WALL MOTION. NO VALVULAR VEGETATION IN SEEN ON THE EXAM, RECOMMEND AMADA IF CLINICALLY INDICATED. TECHNOLOGIST: Natacha KING
[2020-10-18] MEDS: KETOCONAZOLE CREAM 15 GM TUBE TOP SCH (09:00)
[2020-10-18 11:05] VITALS: O2SAT 95
[2020-10-18 13:51] VITALS: BP 100/65; TEMP 98.4
[2020-10-18] MEDS: Levofloxacin500mg IV 500 MG/100 ML BAG IV SCH (14:33)
--- NOTE | 2020-10-18 16:11 | P.DS ---
Admission Date: 10/17/20 Discharge Date: 10/18/20 Primary Care Provider: Dr. White Disposition: ROUTINE DISCHARGE Discharge Condition: GOOD Reason for Admission: Recurrent right lower extremity infection Consultations: Infectious Disease: Dr. Riddle Procedures: ECHO: EF 63% LEFT VENTRICULAR WALL MOTION: NORMAL DOPPLER/COLOR FLOW: NORMAL COMMENTS: NORMAL LEFT VENTRICULAR LEFT VENTRICULAR EJECTION FRACTION 55-60% WITH NORMAL WALL MOTION. NO VALVULAR VEGETATION IN SEEN ON THE EXAM, RECOMMEND AMADA IF CLINICALLY INDICATED. Venous doppler: FINDINGS: Normal compressibility, flow augmentation, phasic flow and spontaneous flow are identified in the right lower extremity common femoral, superficial femoral, popliteal and posterior tibial veins. No intraluminal filling defects seen. A small 10-12 mm avascular hypoechoic to anechoic mass in the right popliteal fossa is most likely a small Benton cyst. No cyst rupture or hemorrhage findings. IMPRESSION: No DVT in the right lower extremity. 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 Impression: Recurrent right lower extremity cellulitis with tenia pedis Benton cyst right popliteal fossa Brief History of Present Illness: 40-year-old female presented with right lower extremity cellulitis. Patient had cellulitis back in April. She was treated in the hospital. Over the past 48 hr she had noted increased pain, swelling, erythema to the right lower extremity. She also reported fever, chills. Fever 102 last night. She denies any significant chest pain, shortness of breath. She does report some pain to the back of her knee. She came to the ER for further evaluation and treatment. In the ER patient will was evaluated. Venous Doppler shows a Benton cyst to the right popliteal area. No DVT noted. White count 18.2, hemoglobin 13. Sodium 136, potassium 3.4. BUN of 8, creatinine 0.8. Pro calcitonin elevated at 0.66. Lactic acid normal. Patient was started on IV antibiotic therapy. Patient admitted for further evaluation and treatment. When I saw the patient ER, patient appeared comfortable. Patient slightly tachycardic. Patient does not appear septic at this time. Hospital Course: Patient presented with Recurrent right lower extremity cellulitis with tenia pedis. Patient was admitted for further evaluation and treatment. Patient required IV antibiotic therapy and IV fluids. Venous Doppler showed no DVT. It did show a Benton cyst to the right popliteal fossa. Infectious Disease was consulted for recommendation. Patient has done well. Pro calcitonin now normal. Case discussed in detail with infectious disease. At discharge she will continue with Levaquin 500 mg daily for next 7 days. Patient will take a probiotic at this time. Patient will be provided education on cellulitis and tinea. Patient to keep leg elevated when sitting or lying. Patient may continue with compression stockings at home. Patient has seen vein specialist in the past. Patient will continue with ketoconazole cream twice daily. Recommend follow up with her PCP to further monitor and address. Vital Signs/Physical Exam: Temp Pulse Resp BP Pulse Ox 98.4 F 107 H 18 100/65 96 10/18/20 12:00 10/18/20 12:00 10/18/20 12:00 10/18/20 12:00 10/18/20 12:00 General: Alert, In no apparent distress, Oriented x3, Cooperative HEENT: Atraumatic Neck: Supple Respiratory: Clear to auscultation bilaterally, Normal air movement Cardiovascular: Normal pulses, Regular rate/rhythm Gastrointestinal: Normal bowel sounds, No tenderness, No masses, No rebound, No guarding Integumentary: Other (Swelling improved to the lower extremities. No significant erythema.) Neurological: Normal speech, Normal strength at 5/5 x4 extr, Normal tone, Normal affect Laboratory Data at Discharge: WBC 8.5 K/uL (4.3-10.9) D 10/17/20 03:42 Hgb 11.6 g/dL (12.0-15.0) L 10/17/20 03:42 Hct 34.3 % (36.0-45.0) L 10/17/20 03:42 Plt Count 204 K/uL (152-406) D 10/17/20 03:42 PT 17.6 SECONDS (9.5-12.5) H 10/16/20 10:20 INR 1.50 10/16/20 10:20 APTT 29.0 SECONDS (24.3-36.9) 10/16/20 10:20 Sodium 140 mmol/L (136-145) 10/17/20 03:42 Potassium 3.5 mmol/L (3.5-5.1) 10/17/20 03:42 BUN 7 mg/dL (7-18) 10/17/20 03:42 Creatinine 0.65 mg/dL (0.55-1.3) 10/17/20 03:42 Glucose 97 mg/dL (74-106) 10/17/20 03:42 Magnesium 2.1 mg/dL (1.8-2.4) 10/17/20 03:42 Total Bilirubin Cancelled 10/16/20 10:20 Total Bilirubin 1.3 mg/dL (0.2-1.0) H 10/16/20 10:20 AST Cancelled 10/16/20 10:20 ALT Cancelled 10/16/20 10:20 AST 27 U/L (15-37) 10/16/20 10:20 Alkaline Phosphatase Cancelled 10/16/20 10:20 ALT 28 U/L (12-78) 10/16/20 10:20 Alkaline Phosphatase 68 U/L (45-117) 10/16/20 10:20 Troponin I < 0.02 ng/mL (0.0-0.045) 10/17/20 19:10 Amylase 22 U/L (25-115) L 10/16/20 10:20 Lipase Cancelled 10/16/20 10:20 Lipase 58 U/L (73-393) L 10/16/20 10:20 Home Medications: Aderall 30 mg PO DAILYPRN PRN 04/10/20 Fluconazole [Diflucan] 100 mg PO ONCE #1 tablet 10/18/20 Ketoconazole [Nizoral Cream*] 1 appl TOP BID #1 tube 10/18/20 Levofloxacin [Levaquin] 500 mg PO DAILY #7 tablet 10/18/20 New Medications: Fluconazole [Diflucan] 100 mg PO ONCE #1 tablet Levofloxacin [Levaquin] 500 mg PO DAILY #7 tablet Ketoconazole [Nizoral Cream*] 1 appl TOP BID #1 tube Patient Discharge Instructions: Follow up with PCP in 1 week to follow up this hospitalization. Patient presented with Recurrent right lower extremity cellulitis with tenia pedis. Patient was admitted for further evaluation and treatment. Patient required IV antibiotic therapy and IV fluids. Venous Doppler showed no DVT. It did show a Benton cyst to the right popliteal fossa. Infectious Disease was consulted for recommendation. Patient has done well. Pro calcitonin now normal. Case discussed in detail with infectious disease. At discharge she will continue with Levaquin 500 mg daily for next 7 days. Patient will take a probiotic at this time. Patient will be provided education on cellulitis and tinea. Patient to keep the leg elevated when sitting or lying. Patient may continue with compression stockings at home. Patient will continue with ketoconazole cream twice daily. Recommend follow up with her PCP to further monitor and address. Diet: AHA Activity: Ad rayo Followup: Luther Borges MD [Primary Care Provider] - Time spent managing pt's care (in minutes): 55
--- NOTE | 2020-10-18 19:45 | PN ---
Subjective: This patient is lying in bed. Denies any headache, nausea, vomiting, chest pain, abdomi nal pain, constipation, or diarrhea. Feels much better today. Denies any other problems. Objective: Vital Signs: Temperature 98, pulse 100, respirations 18, blood pressure 100/65. Extremities: Examination of right leg shows decreased swelling and erythematous changes, decreased w armth from the leg also noted. Laboratory Data: WBC down from 18 to 8.5, hemoglobin 11.6, platelets 204. The patient currently res ponding well to vancomycin and Levaquin. Assessment And Plan: Right leg cellulitis, currently on Levaquin and vancomycin. Recommend to switc h the patient to Levaquin and doxycycline, total course of 2 weeks. Continue supportive care. Keep leg elevated. Also for tinea pedis, continue using ketoconazole cream or ointment or spray as availa ble. Keep leg elevated when possible. NF/MODL Voice ID: [id number] Report ID: [id number]
== END 2020-10-18 16:45 | disposition home or self-care (01) | DRG 603 ==
LOC: ER 09:33 → ERHOLD 13:49 → 4TH 10-17 00:48 → OBSVTOIN 10-17 13:26
PROVIDERS: ADMIT Family Medicine; ATTEND Family Medicine
DX: L03.115 Cellulitis of right lower limb (principal); B35.3 Tinea pedis; M71.21 Synovial cyst of popliteal space [Baker], right knee; E66.01 Morbid (severe) obesity due to excess calories; R00.0 Tachycardia, unspecified; Z68.32 Body mass index [BMI] 32.0-32.9, adult; Z90.710 Acquired absence of both cervix and uterus; Z85.41 Personal history of malignant neoplasm of cervix uteri; Z88.5 Allergy status to narcotic agent; Z91.013 Allergy to seafood; Z79.899 Other long term (current) drug therapy; Z20.828 Contact with and (suspected) exposure to other viral communicable diseases
CPT/HCPCS: 36415; 71045; 80048; 80076; 82150; 82550; 82553; 83605; 83690; 83735; 84145; 84484; 85025; 85610; 85730; 87040; 93005; 93306; 93971; 94760; 96365; 96366; 96367; 99285; J1650; J3370; J7030; J7040; U0003